=== PATIENT | female | born 1940 | race Caucasian/White ===

== ENCOUNTER 2016-05-16 10:53 | Emergency (ER) | payer OTHER ==
[~2016-05-16] VITALS: Ht 167.6 cm; Wt 60.0 kg
[2016-05-16 10:57] VITALS: BP 162/76; PULSE 71; RESP 20; TEMP 97.7; O2SAT 100
[2016-05-16] MEDS ORDERED: SIMV40TA PO (11:28)
[2016-05-16] MEDS ORDERED: SODIUM CHLOR 0.9% 1000 ML INJ 1,000 ML IV ONE (11:45)
[2016-05-16] MEDS ORDERED: LORazepam 2 MG/ML VIAL IV PUSH ONE (11:45)
[2016-05-16] MEDS ORDERED: MECLIZINE HCL 25 MG TAB PO ONE (11:45)
[2016-05-16] MEDS ORDERED: SODIUM CHLORIDE 0.9% FLUSH 5 ML FLUSH IVF PRN (11:45)
[2016-05-16 11:50] VITALS: O2SAT 97
[2016-05-16 11:52] LABS: AUTOMATED NEUTROPHIL # 3.8 TH/MM3 (1.8-7.7); BASOPHIL # 0.1 TH/MM3 (0-0.2); BASOPHIL % 1.2 % (0.0-2.0); EOSINOPHIL % 0.8 % (0.0-4.0); HEMATOCRIT 37.2 % (35.0-46.0); HEMO FLAGS DIFF FINAL; LYMPHOCYTE # 1.3 TH/MM3 (1.0-4.8); MEAN CELL VOLUME 84.6 FL (80.0-100.0); MEAN CORPUSCULAR HEMOGLOBIN 27.3 PG (27.0-34.0); MEAN CORPUSCULAR HGB CONC 32.3 % (32.0-36.0); MONO % 6.6 % (0.0-8.0); NEUT % 67.4 % (16.0-70.0); PLATELET COUNT 279 TH/MM3 (150-450); RED BLOOD COUNT 4.39 MIL/MM3 (4.00-5.30); RED CELL DISTRIBUTION WIDTH 12.4 % (11.6-17.2); WHITE BLOOD COUNT 5.6 TH/MM3 (4.0-11.0)
[2016-05-16 12:04] LABS: CHLORIDE 106 MEQ/L (98-107); POTASSIUM 3.7 MEQ/L (3.5-5.1); SODIUM (NA) 141 MEQ/L (136-145)
[2016-05-16 12:07] LABS: ANION GAP 13 MEQ/L (5-15); BICARBONATE 22.2 MEQ/L (21.0-32.0); BLOOD UREA NITROGEN 12 MG/DL (7-18)
--- NOTE | 2016-05-16 12:08 | PD ---
HPI Chief Complaint: Dizziness Time Seen by Provider: 11:32 Travel History International Travel<30 days: No Contact w/Intl Traveler<30days: No Traveled to known affect area: No History of Present Illness HPI Patient is a 76-year-old female with history of vertigo, presents to emergency room with complaints of acute onset dizziness. Patient reports that around 9 AM this morning, began to feel the room spinning. Reports that she began to feel nauseous and dizzy and she did vomit up her breakfast. Patient reports that this spinning sensation has since improved, reports that she just feels "dizzy." Denies any trauma to the head or neck. Reports that the last time she felt like this, has been years. Reports that overall, this is the "worst dizzyness" she has felt ever. Reports that Phenergan and antivert usually help her symptoms, reports that since she hasn't had dizziness for the past few years and she has since run out of her medications. Denies trauma or fall. Denies chest pain/sob. Denies abdominal pain, denies n/v. No fever/chills. PFSH Past Medical History High Cholesterol: Yes Tetanus Vaccination: > 5 Years Influenza Vaccination: Yes ?: Not Past Surgical History Appendectomy: Yes Hysterectomy: Yes Family History Family History: Negative Social History Alcohol Use: No Tobacco Use: No Substance Use: No Allergies-Medications (Allergen,Severity, Reaction): Coded Allergies: Penicillin (Verified Allergy, Severe, HIVES, 05/16/16) Reported Meds & Prescriptions Reported Meds & Active Scripts Active Zofran Odt (Ondansetron Odt) 4 Mg Tab 4 Mg SL Q6HR PRN Meclizine (Meclizine HCl) 25 Mg Chew 25 Mg CHEW TID PRN Reported Simvastatin 40 Mg Tab 40 Mg PO HS Review of Systems General / Constitutional: No: Fever, Chills Eyes: No: Visual changes HENT: No: Headaches Cardiovascular: No: Chest Pain or Discomfort Respiratory: No: Shortness of Breath Gastrointestinal: No: Abdominal Pain Genitourinary: No: Dysuria Musculoskeletal: No: Pain Skin: No Rash Neurologic: Positive: Dizziness, Ataxia, No: Weakness, Syncope, Focal Abnormalities, Coordination Problem, Headache, Paresthesia, Incontinence, Seizures Psychiatric: No: Depression Endocrine: No: Polydipsia Hematologic/Lymphatic: No: Easy Bruising Physical Exam Narrative GENERAL: mild distress SKIN: Warm and dry. HEAD: Atraumatic. Normocephalic. EYES: Pupils equal and round. No scleral icterus. No injection or drainage. ENT: No nasal bleeding or discharge. Mucous membranes pink and moist. NECK: Trachea midline. No JVD. CARDIOVASCULAR: Regular rate and rhythm. No murmur appreciated. RESPIRATORY: No accessory muscle use. Clear to auscultation. Breath sounds equal bilaterally. GASTROINTESTINAL: Abdomen soft, non-tender, nondistended. Hepatic and splenic margins not palpable. MUSCULOSKELETAL: No obvious deformities. No clubbing. No cyanosis. No edema. NEUROLOGICAL: Awake and alert. No obvious cranial nerve deficits. Motor grossly within normal limits. Normal speech. pt with horizontal nystagmus on exam, cranial nerves II-12 grossly intact with no neurological deficits PSYCHIATRIC: Appropriate mood and affect; insight and judgment normal. Data Data Last Documented VS Vital Signs Date Time Temp Pulse Resp B/P Pulse Ox O2 Delivery O2 Flow Rate FiO2 05/16/16 13:35 61 14 111/47 97 Room Air 05/16/16 10:57 97.7 Orders Electrocardiogram (05/16/16 11:41) Prothrombin Time / Inr (Pt) (05/16/16 11:41) Act Partial Throm Time (Ptt) (05/16/16 11:41) Complete Blood Count With Diff (05/16/16 11:41) Comprehensive Metabolic Panel (05/16/16 11:41) Urinalysis - C+S If Indicated (05/16/16 11:41) Ct Brain W/O Iv Contrast(Rout) (05/16/16 11:41) Chest, Single Ap (05/16/16 11:41) Ecg Monitoring (05/16/16 11:41) Iv Access Insert/Monitor (05/16/16 11:41) Oximetry (05/16/16 11:41) Sodium Chloride 0.9% Flush (Ns Flush) (05/16/16 11:45) Meclizine (Antivert) (05/16/16 11:45) Lorazepam Inj (Ativan Inj) (05/16/16 11:45) Sodium Chlor 0.9% 1000 Ml Inj (Ns 1000 M (05/16/16 11:45) Aspirin (Aspirin) (05/16/16 14:00) Mri Brain W/O Contrast (05/16/16 14:14) Mra Brain W/O Contrast (Cow) (05/16/16 14:21) Mra Carotids W Contrast (05/16/16 14:21) Labs Laboratory Tests Test 05/16/16 11:40 White Blood Count 5.6 TH/MM3 Red Blood Count 4.39 MIL/MM3 Hemoglobin 12.0 GM/DL Hematocrit 37.2 % Mean Corpuscular Volume 84.6 FL Mean Corpuscular Hemoglobin 27.3 PG Mean Corpuscular Hemoglobin 32.3 % Concent Red Cell Distribution Width 12.4 % Platelet Count 279 TH/MM3 Mean Platelet Volume 7.2 FL Neutrophils (%) (Auto) 67.4 % Lymphocytes (%) (Auto) 24.0 % Monocytes (%) (Auto) 6.6 % Eosinophils (%) (Auto) 0.8 % Basophils (%) (Auto) 1.2 % Neutrophils # (Auto) 3.8 TH/MM3 Lymphocytes # (Auto) 1.3 TH/MM3 Monocytes # (Auto) 0.4 TH/MM3 Eosinophils # (Auto) 0.0 TH/MM3 Basophils # (Auto) 0.1 TH/MM3 CBC Comment DIFF FINAL Differential Comment Prothrombin Time 10.7 SEC Prothromb Time International 1.0 RATIO Ratio Activated Partial 24.3 SEC Thromboplast Time Sodium Level 141 MEQ/L Potassium Level 3.7 MEQ/L Chloride Level 106 MEQ/L Carbon Dioxide Level 22.2 MEQ/L Anion Gap 13 MEQ/L Blood Urea Nitrogen 12 MG/DL Creatinine 0.81 MG/DL Estimat Glomerular Filtration 69 ML/MIN Rate Random Glucose 137 MG/DL Calcium Level 8.7 MG/DL Total Bilirubin 0.7 MG/DL Aspartate Amino Transf 16 U/L (AST/SGOT) Alanine Aminotransferase 20 U/L (ALT/SGPT) Alkaline Phosphatase 65 U/L Total Protein 6.7 GM/DL Albumin 3.6 GM/DL [facility] Medical Decision Making Medical Screen Exam Complete: Yes Emergency Medical Condition: Yes Interpretation(s) EKG at 1146: Sinus bradycardia at 57 bpm, QT/QTc 458/453 Vital Signs Date Time Temp Pulse Resp B/P Pulse Ox O2 Delivery O2 Flow Rate FiO2 05/16/16 11:50 97 Room Air 05/16/16 10:57 97.7 71 20 162/76 100 Differential Diagnosis Vertigo, intracranial hemorrhage, CVA, electrolyte abnormality, arrhythmia, vertebral basilar insufficiency Narrative Course Patient is a 76-year-old female who presents to emergency room with complaints of dizziness. She reports history of vertigo in the past, reports that this morning around 9 AM, she felt dizzy as if the world was spinning, reports that she felt nauseous and did vomit up her breakfast. Reports history of vertigo in the past, reports her symptoms usually resolve after taking Antivert and Phenergan. Patient did not have his medications at home, presents to emergency room for evaluation of her treatment. Patient with benign physical exam, cranial nerves to 12 grossly intact with no neurological deficits. Plan to obtain CAT scan of the brain as well as CBC, BMP, EKG for further evaluation symptoms. Will treat patient's vertiginous symptoms with Antivert and Ativan Pt re-evaluated, pt reports that she is feeling a little better, will continue to monitor patient cbc: wnl bmp: bun/cr: 12/0.81, gfr: 69 ct head: normal examination chest xray: no active disease Patient re-evaluated, I ambulated patient to the bathroom, pt reports that she still feels very dizzy. Discussed with her that she will need to be admitted because i cannot rule out VBI, pt reports that she feels "unsteady" on her feet with ambulation. Concern for vbi as pt does feel nauseas with her symptoms and feels ataxia with ambulation. Pt agreeable to admission Case reviewed with Dr Mas, does not feel that patient requires admission for work up for dizzyness. Feels that studies can be performed in ER and then pt can be followed up as outpt. If patient requires admission, then request that I speak to Neurologist first to get their input Case reviewed with Neurologist, Dr Munoz, request that I order MRI and MRA of the head and neck to evaluate nightmute of alfaro given her age and symptoms. If these studies are negative, then patient can be safely discharged to home with diagnosis of vertigo and can follow up as outpt This was reviewed with pt - pt agreeable to MRI's. MRI's ordered for patient Pt signed out to care of Dr. Suarez at shift change Diagnosis Primary Impression: Dizziness Patient Instructions: General Instructions Med/Other Pt SpecificInfo: Prescription(s) given Scripts Ondansetron Odt (Zofran Odt)4 Mg Tab4 Mg SL Q6HR PRN (Nausea/Vomiting) #30 TAB Ref 0 Prov:Jazmyne Yoon DO 05/16/16 Meclizine 25 Mg Chew25 Mg CHEW TID PRN (DIZZINESS) #30 TAB Ref 0 Prov:Jazmyne Yoon DO 05/16/16 Disposition: 01 DISCHARGE HOME Condition: Stable Jazmyne Yoon DO May 16, 2016 12:08
[2016-05-16 12:09] LABS: APTT (PATIENT) 24.3 SEC (24.3-30.1); PROTHROMBIN TIME - PATIENT 10.7 SEC (9.8-11.6)
[2016-05-16 12:10] LABS: ALT (GPT) 20 U/L (10-53); AST (GOT) 16 U/L (15-37); GLOMERULAR FILTRATION RATE 69 ML/MIN (>89)
[2016-05-16 12:12] LABS: TOTAL BILIRUBIN ADULT 0.7 MG/DL (0.2-1.0)
[2016-05-16 12:13] LABS: ALKALINE PHOSPHATASE 65 U/L (45-117)
[2016-05-16 12:35] VITALS: BP 110/59; PULSE 64; RESP 14; O2SAT 98
--- NOTE | 2016-05-16 12:44 | RADHPO ---
EXAM DATE/TIME: 05/16/2016 12:21 [facility] COMPARISON: No previous studies available for comparison. INDICATIONS : Dizziness. RADIATION DOSE: 56.26 CTDIvol (mGy) MEDICAL HISTORY : Hypercholesterolemia. SURGICAL HISTORY : Appendectomy. Hysterectomy. ENCOUNTER: Initial ACUITY: 1 day PAIN SCALE: 0/10 LOCATION: cranial TECHNIQUE: Multiple contiguous axial images were obtained of the head. Using automated exposure control and adj ustment of the mA and/or kV according to patient size, radiation dose was kept as low as reasonably a chievable to obtain optimal diagnostic quality images. FINDINGS: CEREBRUM: The ventricles are normal for age. No evidence of midline shift, mass lesion, hemorrhage or acute in farction. No extra-axial fluid collections are seen. POSTERIOR FOSSA: The cerebellum and brainstem are intact. The 4th ventricle is midline. The cerebellopontine angle i s unremarkable. EXTRACRANIAL: The visualized portion of the orbits is intact. SKULL: The calvaria is intact. No evidence of skull fracture. CONCLUSION: Normal examination. Virgilio Curran MD on May 16, 2016 at 12:40 Board Certified Radiologist. This report was verified electronically.
--- NOTE | 2016-05-16 13:02 | RADHPO ---
EXAM DATE/TIME: 05/16/2016 12:12 [facility] COMPARISON: No previous studies available for comparison. INDICATIONS : Dizziness. MEDICAL HISTORY : vertigo SURGICAL HISTORY : None. ENCOUNTER: Initial ACUITY: 1 day PAIN SCORE: 0/10 LOCATION: Bilateral chest FINDINGS: A single view of the chest demonstrates the lungs to be symmetrically aerated without evidence of mas s, infiltrate or effusion. The cardiomediastinal contours are unremarkable. Osseous structures are intact. CONCLUSION: 1. No active disease. Virgilio Curran MD on May 16, 2016 at 13:00 Board Certified Radiologist. This report was verified electronically.
[2016-05-16 13:35] VITALS: BP 111/47; PULSE 61; RESP 14; O2SAT 97
[2016-05-16] MEDS ORDERED: ZOFR4TAB3 SL (13:54)
[2016-05-16] MEDS ORDERED: MECL25CH CHEW (13:54)
[2016-05-16] MEDS ORDERED: ASPIRIN 325 MG TAB PO ONE (14:00)
[2016-05-16 16:00] VITALS: BP 124/68; PULSE 81; RESP 14; O2SAT 98
[2016-05-16 16:05] LABS: BLOOD, URINE NEG (NEG); GLUCOSE,URINE NEG (NEG); KETONE, URINE TRACE mg/dL (NEG); NITRITE,URINE NEG (NEG)
[2016-05-16 16:07] LABS: METHOD OF COLLECTION CATH; URINE COLOR YELLOW (YELLW/STRAW)
[2016-05-16 16:09] LABS: COMMENT (UR) CULT NOT INDICATED; CULTURE IF INDICATED CULT NOT INDICATED; SQUAMOUS EPITHELIAL CELL URINE 0-5 /hpf (0-5); WBC, URINE 0-2 /hpf (0-5)
--- NOTE | 2016-05-16 16:10 | RADHPO ---
EXAM DATE/TIME: 05/16/2016 15:28 [facility] COMPARISON: No previous studies available for comparison. INDICATIONS : Dizziness. CVA. MEDICAL HISTORY : Hypercholesterolemia. SURGICAL HISTORY : Hysterectomy. Appendectomy. ENCOUNTER: Subsequent ACUITY: 1 day PAIN SCORE: 2/10 LOCATION: head. TECHNIQUE: Multiplanar, multisequence MRI of the brain was performed without contrast. FINDINGS: CEREBRUM: The ventricles are normal for age. No evidence of midline shift, mass lesion, hemorrhage or acute in farction. No extraaxial fluid collections are seen. The pituitary gland and suprasellar cistern are normal in configuration. WHITE MATTER: Mild signal abnormalities are seen in the white matter. POSTERIOR FOSSA: The cerebellum and brainstem are intact. The 4th ventricle is midline. The cerebellopontine angle is unremarkable. The cerebellar tonsils are normal in position. DIFFUSION IMAGING: No focal areas of restricted diffusion are seen. No evidence of acute infarction. EXTRACRANIAL: The visualized portions of the orbits and paranasal sinuses are unremarkable. CONCLUSION: 1. Mild white matter ischemic changes. No recent infarct identified. No mass effect or midline shift. No hydrocephalus. Virgilio Curran MD on May 16, 2016 at 16:05 Board Certified Radiologist. This report was verified electronically.
--- NOTE | 2016-05-16 16:12 | RADHPO ---
EXAM DATE/TIME: 05/16/2016 15:28 [facility] COMPARISON: No previous studies available for comparison. INDICATIONS : Dizziness. CVA. MEDICAL HISTORY : Hypercholesterolemia. SURGICAL HISTORY : Hysterectomy. Appendectomy. ENCOUNTER: Subsequent ACUITY: 1 day PAIN SCORE: 2/10 LOCATION: head. Please note a normal MRA of the brain does not entirely exclude the possibility of a small aneurysm, nor the possibility of distal intracranial vessel disease. TECHNIQUE: 3D time of flight MRA was performed. Source images, multiplanar STS MIP, and 3D volume MIP reconstru ctions were reviewed. FINDINGS: There is excellent visualization of the major intracranial arteries out to the second-order branch ve ssels. There is no evidence for aneurysm, vessel truncation or stenosis, and no evidence for vascula r malformation. CONCLUSION: Normal examination for a patient of this age. Virgilio Curran MD on May 16, 2016 at 16:09 Board Certified Radiologist. This report was verified electronically.
[2016-05-16] MEDS ORDERED: GADODIAMIDE PF 287 MG/ML 20 ML VIAL (for RAD MRI) IV ONE (16:23)
--- NOTE | 2016-05-16 16:39 | RADHPO ---
EXAM DATE/TIME: 05/16/2016 15:28 [facility] COMPARISON: No previous studies available for comparison. INDICATIONS : Stenosis. CONTRAST: 20 cc Omniscan (gadodiamide) IV MEDICAL HISTORY : Hypercholesterolemia. SURGICAL HISTORY : Hysterectomy. Appendectomy. ENCOUNTER: Subsequent ACUITY: 1 day PAIN SCORE: 0/10 LOCATION: neck. Percent stenosis is calculated using the diameter of the stenotic region over the diameter of the nor mal distal internal carotid artery. TECHNIQUE: Bolus infused MRA of the extracranial circulation was performed using a neurovascular coil. Post pro cessing was performed including rotationg subvolume maximum intensity projections of each carotid art ashleigh, rotating full volume maximum intensity projections of both carotid arteries, sagittal and weathers l sliding thin slab reformations of each carotid artery, and left oblique sliding thin slab reformati on through the aortic arch to include the origin of the arch branch vessels. FINDINGS: AORTIC ARCH: There is a three vessel origin of the great vessels from the aorta. No evidence of ostial narrowing. RIGHT CAROTID: The common carotid artery is intact. The carotid bulb has a normal configuration without ulceration or narrowing. The internal carotid artery lumen is smooth without stenosis. The external carotid ar jamila is intact. LEFT CAROTID: The common carotid artery is intact. The carotid bulb has a normal configuration without ulceration or narrowing. The exam demonstrates a beaded appearance of the proximal internal carotid suggesting mild fibromuscular dysplasia. The external carotid artery is intact. VERTEBRALS: The vertebral arteries have a symmetric diameter. No stenotic lesions are seen. CONCLUSION: 1. Left carotid: 2. There is a beaded appearance of the proximal left internal carotid consistent with mild fibromuscu lar dysplasia. 3. 4. Right carotid: 5. The right internal carotid circulation is widely patent. 6. Both vertebral arteries are widely patent. Emanuel Villela MD on May 16, 2016 at 16:34 Board Certified Radiologist. This report was verified electronically.
[2016-05-16 17:20] VITALS: BP 114/64; PULSE 65; RESP 14; O2SAT 98
--- NOTE | 2016-05-16 17:22 | PD ---
Data Data Last Documented VS Vital Signs Date Time Temp Pulse Resp B/P Pulse Ox O2 Delivery O2 Flow Rate FiO2 05/16/16 17:20 65 14 114/64 98 Room Air 05/16/16 10:57 97.7 Orders Electrocardiogram (05/16/16 11:41) Prothrombin Time / Inr (Pt) (05/16/16 11:41) Act Partial Throm Time (Ptt) (05/16/16 11:41) Complete Blood Count With Diff (05/16/16 11:41) Comprehensive Metabolic Panel (05/16/16 11:41) Urinalysis - C+S If Indicated (05/16/16 11:41) Ct Brain W/O Iv Contrast(Rout) (05/16/16 11:41) Chest, Single Ap (05/16/16 11:41) Ecg Monitoring (05/16/16 11:41) Iv Access Insert/Monitor (05/16/16 11:41) Oximetry (05/16/16 11:41) Sodium Chloride 0.9% Flush (Ns Flush) (05/16/16 11:45) Meclizine (Antivert) (05/16/16 11:45) Lorazepam Inj (Ativan Inj) (05/16/16 11:45) Sodium Chlor 0.9% 1000 Ml Inj (Ns 1000 M (05/16/16 11:45) Aspirin (Aspirin) (05/16/16 14:00) Mri Brain W/O Contrast (05/16/16 14:14) Mra Brain W/O Contrast (Cow) (05/16/16 14:21) Mra Carotids W Contrast (05/16/16 14:21) Gadodiamide Pf Inj (Omniscan Pf Inj) (05/16/16 16:23) Labs Laboratory Tests Test 05/16/16 05/16/16 11:40 16:00 White Blood Count 5.6 TH/MM3 Red Blood Count 4.39 MIL/MM3 Hemoglobin 12.0 GM/DL Hematocrit 37.2 % Mean Corpuscular Volume 84.6 FL Mean Corpuscular Hemoglobin 27.3 PG Mean Corpuscular Hemoglobin 32.3 % Concent Red Cell Distribution Width 12.4 % Platelet Count 279 TH/MM3 Mean Platelet Volume 7.2 FL Neutrophils (%) (Auto) 67.4 % Lymphocytes (%) (Auto) 24.0 % Monocytes (%) (Auto) 6.6 % Eosinophils (%) (Auto) 0.8 % Basophils (%) (Auto) 1.2 % Neutrophils # (Auto) 3.8 TH/MM3 Lymphocytes # (Auto) 1.3 TH/MM3 Monocytes # (Auto) 0.4 TH/MM3 Eosinophils # (Auto) 0.0 TH/MM3 Basophils # (Auto) 0.1 TH/MM3 CBC Comment DIFF FINAL Differential Comment Prothrombin Time 10.7 SEC Prothromb Time International 1.0 RATIO Ratio Activated Partial 24.3 SEC Thromboplast Time Sodium Level 141 MEQ/L Potassium Level 3.7 MEQ/L Chloride Level 106 MEQ/L Carbon Dioxide Level 22.2 MEQ/L Anion Gap 13 MEQ/L Blood Urea Nitrogen 12 MG/DL Creatinine 0.81 MG/DL Estimat Glomerular Filtration 69 ML/MIN Rate Random Glucose 137 MG/DL Calcium Level 8.7 MG/DL Total Bilirubin 0.7 MG/DL Aspartate Amino Transf 16 U/L (AST/SGOT) Alanine Aminotransferase 20 U/L (ALT/SGPT) Alkaline Phosphatase 65 U/L Total Protein 6.7 GM/DL Albumin 3.6 GM/DL Urine Collection Type CATH Urine Color YELLOW Urine Turbidity CLEAR Urine pH 7.0 Urine Specific Leonard 1.007 Urine Protein NEG mg/dL Urine Glucose (UA) NEG mg/dL Urine Ketones TRACE mg/dL Urine Occult Blood NEG Urine Nitrite NEG Urine Bilirubin NEG Urine Leukocyte Esterase TRACE Urine WBC 0-2 /hpf Urine Squamous Epithelial 0-5 /hpf Cells Microscopic Urinalysis Comment CULT NOT INDICATED MDM Supervised Visit with VONDA: No Narrative Course Patient care assumed from Dr. Yoon at 1600, this is a 76-year-old female presented to emergency department with vertiginous type symptoms. Patient states that she has a history of vertigo and has been out of her medicines for some time but this was more intense. Denies history of headache. Initially Dr. Yoon considered admission to the hospital for TIA workup versus basilar stroke workup. After discussion with the hospitalist and a neurologist decision was made for MRI here in the emergency department. MRI has been obtained as well as MRA and essentially negative. Patient does have some beadlike structure in her left carotid artery and this was discussed with her need for follow-up the primary care physician over there was no clot observed. After medication from Dr. Yoon the patient is feeling much better, she displayed normal [id number] test for me as well as no pronator drift, she is ambulatory in the emergency department with him even a narrow based gait. She does feel somewhat drowsy from the Ativan that she was given. At this time and discussed with her the findings and she is eager to go home and follow up with her primary care physician. I discussed with her return to ED criteria Diagnosis Primary Impression: Dizziness Patient Instructions: General Instructions Scripts Ondansetron Odt (Zofran Odt)4 Mg Tab4 Mg SL Q6HR PRN (Nausea/Vomiting) #30 TAB Ref 0 Prov:Jazmyne Yoon DO 05/16/16 Meclizine 25 Mg Chew25 Mg CHEW TID PRN (DIZZINESS) #30 TAB Ref 0 Prov:Jazmyne Yoon DO 05/16/16 Disposition: 01 DISCHARGE HOME Condition: Stable Wilman Suarez MD May 16, 2016 17:22
--- NOTE | 2016-05-17 12:03 | EKG ---
Date Performed: 05/16/2016 Time Performed: 11:46:44 PTAGE: 76 years EKG: Sinus bradycardia with sinus arrhythmia Normal ECG except for rate NO PREVIOUS TRACING DOCTOR: Addi Beckwith Interpretating Date/Time 05/17/2016 12:02:25
[2016-07-10] MEDS ORDERED: GABA100C4 PO (15:50)
[2016-07-10] MEDS ORDERED: HYDR-3516 PO (15:50)
[2016-07-12] MEDS ORDERED: GABA100C4 PO (07:10)
[2016-08-03] MEDS ORDERED: GABA100C4 PO (16:44)
[2016-08-07] MEDS ORDERED: GABA100C4 PO (15:53)
[2016-08-08] MEDS ORDERED: GABA100C4 PO (11:56)
[2016-08-08] MEDS ORDERED: GABA300C5 PO (12:01)
== END 2016-05-16 17:35 | disposition home or self-care (01) ==
LOC: PHED 10:53
DX: R42 Dizziness and giddiness (principal); R11.2 Nausea with vomiting, unspecified; R00.1 Bradycardia, unspecified; E78.00 Pure hypercholesterolemia, unspecified
CPT/HCPCS: 70450; 70544; 70548; 70551; 71010; 80053; 81001; 85025; 85610; 85730; 93005; 96361; 96374; 99284; A9579; J2060; J7030

== ENCOUNTER 2016-06-23 16:10 | Observation (INO) | payer OTHER ==
[2016-06-23] VITALS (7 sets, daily range): BP systolic 105–139; BP diastolic 54–70; PULSE 57–82; RESP 16–18; TEMP 96.5–97.7; O2SAT 96–100
[~2016-06-23] VITALS: Ht 167.6 cm; Wt 61.8 kg
[~2016-06-23 16:10] MED LIST: MECL25CH CHEW; SIMV40TA PO; ZOFR4TAB3 SL
--- NOTE | 2016-06-23 18:39 | PD ---
HPI Chief Complaint: Pain: Acute or Chronic Time Seen by Provider: 18:22 Travel History International Travel<30 days: No Contact w/Intl Traveler<30days: No Traveled to known affect area: No History of Present Illness HPI This 76-year-old female has been having pain in the right groin and back area. His been having pain for about 3 weeks. She went to an urgent care center and had x-rays done he was told she had an old fracture around her tailbone. She was given steroids which seemed to help a little bit. She has a lot of pain when she tries to walk. She says the pain is been getting progressively worse. She's been taking ibuprofen for the pain without much response. The pain occasionally goes down her legs area and she has no history of hypertension or diabetes. There is no history of trauma. She has had an appendectomy. She has had a hysterectomy. The area she was seen here in May for vertigo. The last 2 or 3 days he has been unable to walk. It is extremely painful for her to bear weight pain that she has any area of the right iliac crest PFSH Past Medical History Hx Anticoagulant Therapy: No Cardiovascular Problems: Yes (CHOL) High Cholesterol: Yes Diabetes: No Influenza Vaccination: Yes Past Surgical History Appendectomy: Yes Hysterectomy: Yes Social History Alcohol Use: No Tobacco Use: No Substance Use: No Allergies-Medications (Allergen,Severity, Reaction): Coded Allergies: Penicillin (Verified Allergy, Severe, HIVES, 06/23/16) Reported Meds & Prescriptions Reported Meds & Active Scripts Active Meclizine (Meclizine HCl) 25 Mg Chew 25 Mg CHEW TID PRN Reported Simvastatin 40 Mg Tab 40 Mg PO HS Review of Systems General / Constitutional: No: Fever, Chills Eyes: No: Diploplia HENT: No: Headaches Cardiovascular: No: Chest Pain or Discomfort, Palpitations Respiratory: No: Cough, Shortness of Breath Gastrointestinal: No: Vomiting, Diarrhea Genitourinary: No: Frequency Musculoskeletal: Positive: Pain, No: Myalgias Skin: No Rash, No Itching Neurologic: No: Weakness Hematologic/Lymphatic: No: Easy Bruising Physical Exam Narrative GENERAL: Well-developed female SKIN: Warm and dry. HEAD: Atraumatic. Normocephalic. EYES: Pupils equal and round. No scleral icterus. No injection or drainage. ENT: No nasal bleeding or discharge. Mucous membranes pink and moist. NECK: Trachea midline. No JVD. CARDIOVASCULAR: Regular rate and rhythm. No murmur appreciated. RESPIRATORY: No accessory muscle use. Clear to auscultation. Breath sounds equal bilaterally. GASTROINTESTINAL: Abdomen soft, there is right lower quadrant tenderness without guarding or rigidity nondistended. Hepatic and splenic margins not palpable. MUSCULOSKELETAL: No obvious deformities. No clubbing. No cyanosis. No edema. There is some tenderness in the area of the right pubic bone and the right iliac crest. I'm able to flex and rotate the hip without eliciting any pain. Patient has severe pain in the right iliac crest when she tries to bear weight NEUROLOGICAL: Awake and alert. No obvious cranial nerve deficits. Motor grossly within normal limits. Normal speech. PSYCHIATRIC: Appropriate mood and affect; insight and judgment normal. Data Data Last Documented VS Vital Signs Date Time Temp Pulse Resp B/P Pulse Ox O2 Delivery O2 Flow Rate FiO2 06/23/16 20:20 58 16 139/70 97 Room Air 06/23/16 16:16 97.7 Orders Complete Blood Count With Diff (06/23/16 18:33) Comprehensive Metabolic Panel (06/23/16 18:33) Urinalysis - C+S If Indicated (06/23/16 18:33) Ct Abd/Pel W Iv Contrast(Rout) (06/23/16 18:33) Ondansetron Inj (Zofran Inj) (06/23/16 18:45) Morphine Inj (Morphine Inj) (06/23/16 18:45) Admit Order (Ed Use Only) (06/23/16 21:21) Mri Joint Hip W&W/O Contrast (06/23/16 ) Labs Laboratory Tests Test 06/23/16 06/23/16 18:43 19:55 White Blood Count 5.5 TH/MM3 Red Blood Count 4.41 MIL/MM3 Hemoglobin 12.3 GM/DL Hematocrit 37.6 % Mean Corpuscular Volume 85.2 FL Mean Corpuscular Hemoglobin 27.8 PG Mean Corpuscular Hemoglobin 32.6 % Concent Red Cell Distribution Width 12.4 % Platelet Count 257 TH/MM3 Mean Platelet Volume 7.0 FL Neutrophils (%) (Auto) 54.5 % Lymphocytes (%) (Auto) 31.4 % Monocytes (%) (Auto) 9.8 % Eosinophils (%) (Auto) 3.3 % Basophils (%) (Auto) 1.0 % Neutrophils # (Auto) 3.0 TH/MM3 Lymphocytes # (Auto) 1.7 TH/MM3 Monocytes # (Auto) 0.5 TH/MM3 Eosinophils # (Auto) 0.2 TH/MM3 Basophils # (Auto) 0.1 TH/MM3 CBC Comment DIFF FINAL Differential Comment Sodium Level 144 MEQ/L Potassium Level 4.0 MEQ/L Chloride Level 108 MEQ/L Carbon Dioxide Level 27.2 MEQ/L Anion Gap 9 MEQ/L Blood Urea Nitrogen 19 MG/DL Creatinine 0.92 MG/DL Estimat Glomerular Filtration 59 ML/MIN Rate Random Glucose 104 MG/DL Calcium Level 8.3 MG/DL Total Bilirubin 0.3 MG/DL Aspartate Amino Transf 13 U/L (AST/SGOT) Alanine Aminotransferase 15 U/L (ALT/SGPT) Alkaline Phosphatase 61 U/L Total Protein 6.5 GM/DL Albumin 3.4 GM/DL Urine Collection Type VOIDED Urine Color STRAW Urine Turbidity CLEAR Urine pH 6.5 Urine Specific [place] 1.035 Urine Protein NEG mg/dL Urine Glucose (UA) NEG mg/dL Urine Ketones TRACE mg/dL Urine Occult Blood NEG Urine Nitrite NEG Urine Bilirubin NEG Urine Leukocyte Esterase NEG Urine WBC 0-2 /hpf Urine Squamous Epithelial 0-2 /hpf Cells Urine Mucus RARE /lpf Microscopic Urinalysis Comment CULT NOT INDICATED MDM Medical Decision Making Medical Screen Exam Complete: Yes Emergency Medical Condition: Yes Medical Record Reviewed: Yes Differential Diagnosis ,Differential includes intra-abdominal process, pelvic bone abnormality Narrative Course CT scan of the abdomen and pelvis has been obtained and does not reveal an etiology for this pain. This pain has been progressive and has gotten to the point she is not able to walk without severe pain. She will be put in observation for further evaluation. Patient has previously been seen in an urgent care center and the pain is intractable.She is unable to ambulate Diagnosis Primary Impression: right pelvic pain Additional Impression: Inability to ambulate due to hip Admitting Information Admitting Physician Requests: Observation Disposition: 01 DISCHARGE HOME Condition: Stable Dimitrios Almaraz MD Jun 23, 2016 18:39
[2016-06-23] MEDS ORDERED: MORPHINE SULFATE 4 MG/ML INJ IV PUSH ONE (18:45)
[2016-06-23] MEDS ORDERED: ONDANSETRON HCL 4 MG/2 ML VIAL IV PUSH ONE (18:45)
[2016-06-23 19:01] LABS: BASOPHIL # 0.1 TH/MM3 (0-0.2); EOSINOPHIL # 0.2 TH/MM3 (0-0.4); EOSINOPHIL % 3.3 % (0.0-4.0); HEMATOCRIT 37.6 % (35.0-46.0); HEMO FLAGS DIFF FINAL; LYMPH % 31.4 % (9.0-44.0); LYMPHOCYTE # 1.7 TH/MM3 (1.0-4.8); MEAN CELL VOLUME 85.2 FL (80.0-100.0); MEAN CORPUSCULAR HEMOGLOBIN 27.8 PG (27.0-34.0); MEAN CORPUSCULAR HGB CONC 32.6 % (32.0-36.0); MONO % 9.8 % (0.0-8.0); NEUT % 54.5 % (16.0-70.0); PLATELET COUNT 257 TH/MM3 (150-450); RED BLOOD COUNT 4.41 MIL/MM3 (4.00-5.30); RED CELL DISTRIBUTION WIDTH 12.4 % (11.6-17.2); WHITE BLOOD COUNT 5.5 TH/MM3 (4.0-11.0)
[2016-06-23 19:10] LABS: CHLORIDE 108 MEQ/L (98-107); SODIUM (NA) 144 MEQ/L (136-145)
[2016-06-23 19:13] LABS: ANION GAP 9 MEQ/L (5-15); BICARBONATE 27.2 MEQ/L (21.0-32.0); BLOOD UREA NITROGEN 19 MG/DL (7-18)
[2016-06-23 19:16] LABS: ALT (GPT) 15 U/L (10-53); AST (GOT) 13 U/L (15-37); GLOMERULAR FILTRATION RATE 59 ML/MIN (>89)
[2016-06-23 19:18] LABS: TOTAL BILIRUBIN ADULT 0.3 MG/DL (0.2-1.0)
[2016-06-23 19:19] LABS: ALKALINE PHOSPHATASE 61 U/L (45-117)
[2016-06-23 20:27] LABS: BLOOD, URINE NEG (NEG); GLUCOSE,URINE NEG (NEG); KETONE, URINE TRACE mg/dL (NEG); NITRITE,URINE NEG (NEG); PH, URINE 6.5 (5.0-8.5)
[2016-06-23 20:38] LABS: METHOD OF COLLECTION VOIDED; URINE COLOR STRAW (YELLW/STRAW)
[2016-06-23 20:39] LABS: WBC, URINE 0-2 /hpf (0-5)
[2016-06-23 20:40] LABS: COMMENT (UR) CULT NOT INDICATED; CULTURE IF INDICATED CULT NOT INDICATED; MUCUS URINE RARE /lpf (OCC); SQUAMOUS EPITHELIAL CELL URINE 0-2 /hpf (0-5)
--- NOTE | 2016-06-23 20:47 | RADHPO ---
EXAM DATE/TIME: 06/23/2016 19:35 [facility] COMPARISON: No previous studies available for comparison. INDICATIONS : Right groin pain radiating to the right back. IV CONTRAST: 93 cc Omnipaque 350 (iohexol) IV ORAL CONTRAST: No oral contrast ingested. RADIATION DOSE: 7.88 CTDIvol (mGy) MEDICAL HISTORY : None SURGICAL HISTORY : Hysterectomy. Appendectomy. ENCOUNTER: Initial ACUITY: 1 day PAIN SCALE: 8/10 LOCATION: Right lower quadrant TECHNIQUE: Volumetric scanning of the abdomen and pelvis was performed. Using automated exposure control and ad justment of the mA and/or kV according to patient size, radiation dose was kept as low as reasonably achievable to obtain optimal diagnostic quality images. FINDINGS: Plan bases clear except for minimal dependent atelectasis. No significant abnormality in the liver, s pleen, adrenals, kidneys or pancreas. No calcified gallstones or biliary ductal dilatation. No free f luid. No bowel obstruction. CONCLUSION: 1. No acute findings in abdomen and pelvic CT. Mild fatty liver. No inguinal hernia identified. Virgilio Curran MD on June 23, 2016 at 20:43 Board Certified Radiologist. This report was verified electronically.
[2016-06-23] MEDS ORDERED: NALOXONE HCL 0.4 MG/ML AMP IV PRN (21:30)
[2016-06-23] MEDS ORDERED: SODIUM CHLORIDE 0.9% FLUSH 5 ML FLUSH FLUSH PRN (21:30)
[2016-06-23] MEDS ORDERED: ONDANSETRON HCL 4 MG/2 ML VIAL IVP PRN (21:30)
[2016-06-23] MEDS ORDERED: BISACODYL 10 MG SUPP PR PRN (21:30)
[2016-06-23] MEDS ORDERED: MORPHINE SULFATE 4 MG/ML INJ IV PUSH PRN (21:30)
[2016-06-23] MEDS ORDERED: ACETAMINOPHEN 325 MG TAB PO PRN (21:30)
[2016-06-23] MEDS: DOCUSATE SODIUM 100 MG CAP PO SCH (22:12)
[2016-06-23] MEDS: HEPARIN SODIUM - SQ 10,000 UNITS/ML VIAL SQ SCH (22:13)
[2016-06-23] MEDS ORDERED: IOHEXOL 350 MG/ML 10 ML VIAL (for RAD DIAG) IV ONE (23:41)
[2016-06-24 04:00] VITALS: BP 119/59; PULSE 62; RESP 20; TEMP 96.6; O2SAT 98
[2016-06-24] MEDS: HEPARIN SODIUM - SQ 10,000 UNITS/ML VIAL SQ SCH ×3 (06:02→21:17)
[2016-06-24 06:53] LABS: AUTOMATED NEUTROPHIL # 3.8 TH/MM3 (1.8-7.7); BASOPHIL % 0.7 % (0.0-2.0); EOSINOPHIL # 0.2 TH/MM3 (0-0.4); EOSINOPHIL % 2.8 % (0.0-4.0); HEMATOCRIT 38.3 % (35.0-46.0); HEMO FLAGS DIFF FINAL; LYMPH % 31.9 % (9.0-44.0); LYMPHOCYTE # 2.1 TH/MM3 (1.0-4.8); MEAN CELL VOLUME 86.2 FL (80.0-100.0); MEAN CORPUSCULAR HEMOGLOBIN 28.2 PG (27.0-34.0); MEAN CORPUSCULAR HGB CONC 32.7 % (32.0-36.0); MONO % 7.7 % (0.0-8.0); NEUT % 56.9 % (16.0-70.0); PLATELET COUNT 234 TH/MM3 (150-450); RED BLOOD COUNT 4.44 MIL/MM3 (4.00-5.30); RED CELL DISTRIBUTION WIDTH 12.8 % (11.6-17.2); WHITE BLOOD COUNT 6.6 TH/MM3 (4.0-11.0)
[2016-06-24 07:22] LABS: POTASSIUM 4.3 MEQ/L (3.5-5.1)
[2016-06-24 07:27] LABS: BICARBONATE 28.4 MEQ/L (21.0-32.0)
[2016-06-24 08:00] VITALS: BP 93/57; PULSE 61; RESP 20; TEMP 96.9; O2SAT 98
[2016-06-24] MEDS: DOCUSATE SODIUM 100 MG CAP PO SCH ×2 (08:13→21:17)
[2016-06-24] MEDS: SODIUM CHLORIDE 0.9% FLUSH 5 ML FLUSH FLUSH SCH ×2 (08:15→21:16)
[2016-06-24] MEDS: MORPHINE SULFATE 4 MG/ML INJ IV PUSH PRN ×2 (11:51→21:17)
[2016-06-24 12:00] VITALS: BP 107/61; PULSE 65; RESP 20; TEMP 98.3; O2SAT 97
[2016-06-24] MEDS ORDERED: MECLIZINE HCL 25 MG TAB PO PRN (12:30)
--- NOTE | 2016-06-24 12:35 | HHI.HP ---
[facility] No Primary Care Physician Admission Diagnosis R PELVIC PAIN, INTRACTABLE, INABILITY TO WALK Diagnoses: Chief Complaint: lumbago Travel History International Travel<30 Days: No Contact w/Intl Traveler <30 Da: No Traveled to Known Affected Are: No History of Present Illness This patient is a 76-year-old female who came to the emergency room with complaints of 3 weeks of right back pain and right leg weakness and inability to ambulate due to the pain. She has noted no trauma or recent injury to the area although 30 years ago she says she had some sort of tell bone fracture which was managed quite conservatively. She has not had any fevers or chills and notes no urinary troubles or dysuria. She did see her primary doctor and had x-rays done and was given steroids which did help a little. However currently she cannot ambulate without severe weakness and severe pain. There is no urinary or stool incontinence. She has no numbness in the leg. Upper extremities are within normal limits. 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 She tried ibuprofen without much relief and finally came to the emergency room for further evaluation. She says she felt better on the steroids but once she discontinued and the pain came back worse. Patient has been recommended for further observation and treatment in the hospital by the ER physician. Review of Systems Constitutional: DENIES: Diaphoretic episodes, Fatigue, Fever, Weight gain, Weight loss, Chills, Dizziness, Change in appetite, Night Sweats Endocrine: DENIES: Abnorml menstrual pattern, Heat/cold intolerance, Polydipsia , Polyuria, Polyphagia Eyes: DENIES: Blurred vision, Diplopia, Eye inflammation, Eye pain, Vision loss , Photosensitivity, Double Vision Ears, nose, mouth, throat: DENIES: Tinnitus, Hearing loss, Vertigo, Nasal discharge, Oral lesions, Throat pain, Hoarseness, Ear Pain, Running Nose, Epistaxis, Sinus Pain, Toothache, Odynophagia Respiratory: DENIES: Apneas, Cough, Snoring, Wheezing, Hemoptysis, Sputum production, Shortness of breath Cardiovascular: DENIES: Chest pain, Palpitations, Syncope, Dyspnea on Exertion , PND, Lower Extremity Edema, Orthopnea, Claudication Gastrointestinal: DENIES: Abdominal pain, Black stools, Bloody stools, Constipation, Diarrhea, Nausea, Vomiting, Difficulty Swallowing, Anorexia Genitourinary: DENIES: Abnormal vaginal bleeding, Dysmenorrhea, Dyspareunia, Sexual dysfunction, Urinary frequency, Urinary incontinence, Urgency, Hematuria , Dysuria, Nocturia, Vaginal discharge Integumentary: DENIES: Abnormal pigmentation, Pruritus, Rash, Nail changes, Breast masses, Breast skin changes, Nipple discharge Hematologic/lymphatic: DENIES: Bruising, Lymphadenopathy Immunologic/allergic: DENIES: Eczema, Urticaria Neurologic: COMPLAINS OF: Abnormal gait (due to weakness), Localized weakness, Poor Balance Psychiatric: DENIES: Anxiety, Confusion, Mood changes, Depression, Hallucinations, Agitation, Suicidal Ideation, Homicidal Ideation, Delusions Past Family Social History Past Medical History hyperlipidemia mild cognitive impairment Past Surgical History chavez eason Reported Medications reviewed in the EMR, recent steroids Allergies: Coded Allergies: Penicillin (Verified Allergy, Severe, HIVES, 06/23/16) Active Ordered Medications reviewed inthe emr Family History dm2 in mom Social History no drugs, tobacco or etoh Physical Exam Vital Signs Vital Signs Date Time Temp Pulse Resp B/P Pulse Ox O2 Delivery O2 Flow Rate FiO2 06/24/16 08:00 96.9 61 20 93/57 98 06/24/16 04:00 96.6 62 20 119/59 98 06/23/16 22:51 96.5 57 18 105/61 100 06/23/16 22:50 63 16 112/58 97 06/23/16 22:45 96.5 57 18 105/61 100 06/23/16 21:45 62 17 118/60 96 Room Air 06/23/16 20:20 58 16 139/70 97 Room Air 06/23/16 19:18 60 16 123/67 98 Room Air 06/23/16 16:16 97.7 82 18 108/54 98 Physical Exam GENERAL: This is a well-nourished, well-developed patient, in no apparent distress. SKIN: No rashes, ecchymoses or lesions. Cool and dry. HEAD: Atraumatic. Normocephalic. No temporal or scalp tenderness. EYES: Pupils equal round and reactive. Extraocular motions intact. No scleral icterus. No injection or drainage. ENT: Nose without bleeding, purulent drainage or septal hematoma. Throat without erythema, tonsillar hypertrophy or exudate. Uvula midline. Airway patent. NECK: Trachea midline. No JVD or lymphadenopathy. Supple, nontender, no meningeal signs. CARDIOVASCULAR: Regular rate and rhythm without murmurs, gallops, or rubs. RESPIRATORY: Clear to auscultation. Breath sounds equal bilaterally. No wheezes , rales, or rhonchi. GASTROINTESTINAL: Abdomen soft, non-tender, nondistended. No hepato-splenomegaly , or palpable masses. No guarding. MUSCULOSKELETAL: right lumbar tenderness, right leg weakness, Extremities without clubbing, cyanosis, or edema. No joint tenderness, effusion, or edema noted. No calf tenderness. Negative Homans sign bilaterally. NEUROLOGICAL: Awake and alert. Cranial nerves II through XII intact. Motor and sensory grossly within normal limits. Five out of 5 muscle strength in all muscle groups. Normal speech. Laboratory Laboratory Tests Test 06/23/16 06/23/16 06/24/16 18:43 19:55 05:57 White Blood Count 5.5 6.6 Red Blood Count 4.41 4.44 Hemoglobin 12.3 12.5 Hematocrit 37.6 38.3 Mean Corpuscular Volume 85.2 86.2 Mean Corpuscular Hemoglobin 27.8 28.2 Mean Corpuscular Hemoglobin 32.6 32.7 Concent Red Cell Distribution Width 12.4 12.8 Platelet Count 257 234 Mean Platelet Volume 7.0 7.6 Neutrophils (%) (Auto) 54.5 56.9 Lymphocytes (%) (Auto) 31.4 31.9 Monocytes (%) (Auto) 9.8 7.7 Eosinophils (%) (Auto) 3.3 2.8 Basophils (%) (Auto) 1.0 0.7 Neutrophils # (Auto) 3.0 3.8 Lymphocytes # (Auto) 1.7 2.1 Monocytes # (Auto) 0.5 0.5 Eosinophils # (Auto) 0.2 0.2 Basophils # (Auto) 0.1 0.0 CBC Comment DIFF FINAL DIFF FINAL Differential Comment Sodium Level 144 144 Potassium Level 4.0 4.3 Chloride Level 108 106 Carbon Dioxide Level 27.2 28.4 Anion Gap 9 10 Blood Urea Nitrogen 19 15 Creatinine 0.92 0.81 Estimat Glomerular Filtration 59 69 Rate Random Glucose 104 103 Calcium Level 8.3 8.5 Total Bilirubin 0.3 Aspartate Amino Transf 13 (AST/SGOT) Alanine Aminotransferase 15 (ALT/SGPT) Alkaline Phosphatase 61 Total Protein 6.5 Albumin 3.4 Urine Collection Type VOIDED Urine Color STRAW Urine Turbidity CLEAR Urine pH 6.5 Urine Specific [place] 1.035 Urine Protein NEG Urine Glucose (UA) NEG Urine Ketones TRACE Urine Occult Blood NEG Urine Nitrite NEG Urine Bilirubin NEG Urine Leukocyte Esterase NEG Urine WBC 0-2 Urine Squamous Epithelial 0-2 Cells Urine Mucus RARE Microscopic Urinalysis Comment CULT NOT INDICATED Result Diagram: 06/24/16 0557 06/24/16 0557 Imaging Last Impressions Abdomen/Pelvis CT 06/23/16 1833 Signed Impressions: Service Date/Time: Thursday, June 23, 2016 19:35 - CONCLUSION: 1. No acute findings in abdomen and pelvic CT. Mild fatty liver. No inguinal hernia identified. Virgilio Curran MD Assessment and Plan Problem List: (1) Inability to ambulate due to hip ICD Code: R26.2 Status: Acute Plan: R/O lumbar disc disease or cva cont with pain meds prn Assessment and Plan plan of care to be determined by hospital course Code Status full code Discussed Condition With patient, family, RN Jaxon,Mariah Teran MD Jun 24, 2016 12:35
[2016-06-24 16:00] VITALS: BP 110/65; PULSE 68; RESP 20; TEMP 98; O2SAT 98
[2016-06-24 20:00] VITALS: BP 109/53; PULSE 76; RESP 16; TEMP 97.3; O2SAT 97
[2016-06-24] MEDS: PRAVASTATIN SOD 80 MG TAB PO SCH (21:17)
[2016-06-25] VITALS: BP 126/57; PULSE 77; RESP 16; TEMP 97.8; O2SAT 99
[2016-06-25 04:00] VITALS: BP 141/73; PULSE 76; RESP 16; TEMP 97.7; O2SAT 98
[2016-06-25] MEDS: HEPARIN SODIUM - SQ 10,000 UNITS/ML VIAL SQ SCH ×3 (05:28→21:51)
[2016-06-25] MEDS: MORPHINE SULFATE 4 MG/ML INJ IV PUSH PRN (05:28)
--- NOTE | 2016-06-25 07:52 | HHI.PR ---
Subjective Remarks Patient seen today in room in follow-up for right lower back pain/lumbago and for right leg weakness. Patient out of bed to chair. No complaints other than pain unable to get MRIs yesterday due to increased pain and anxiety Objective Vitals Vital Signs Date Time Temp Pulse Resp B/P Pulse Ox O2 Delivery O2 Flow Rate FiO2 06/25/16 04:00 97.7 76 16 141/73 98 06/25/16 00:00 97.8 77 16 126/57 99 06/24/16 20:00 97.3 76 16 109/53 97 06/24/16 16:00 98.0 68 20 110/65 98 06/24/16 12:00 98.3 65 20 107/61 97 06/24/16 08:00 96.9 61 20 93/57 98 I/O 06/24/16 06/24/16 06/24/16 06/25/16 06/25/16 06/25/16 07:00 15:00 23:00 07:00 15:00 23:00 Intake Total 800 ml 640 ml 420 ml Balance 800 ml 640 ml 420 ml Intake Oral 800 ml 640 ml 420 ml # Voids 5 3 6 # Bowel Movements 0 0 0 Result Diagram: 06/24/16 0557 06/24/16 0557 Objective Remarks GENERAL: This is a well-nourished, well-developed patient, in no apparent distress. CARDIOVASCULAR: Regular rate and rhythm without murmurs, gallops, or rubs. RESPIRATORY: Clear to auscultation. Breath sounds equal bilaterally. No wheezes , rales, or rhonchi. GASTROINTESTINAL: Abdomen soft, non-tender, nondistended. Normal active bowel sounds MUSCULOSKELETAL: Extremities without clubbing, cyanosis, or edema. NEURO: Mild to moderate cognitive impairment Alert & Oriented x4 to person, and place, right lower extremity weakness A/P Problem List: (1) Inability to ambulate due to hip ICD Code: R26.2 Status: Acute Plan: R/O lumbar disc disease or cva cont with pain meds Naprosyn/Ultram scheduled Rehabilitation efforts (2) HLD (hyperlipidemia) ICD Code: E78.5 Status: Acute Plan: cont statin Mariah Coates MD Jun 25, 2016 07:51
[2016-06-25 08:00] VITALS: BP 107/51; PULSE 88; RESP 20; TEMP 98.3; O2SAT 98
[2016-06-25] MEDS ORDERED: PILL SPLITTER OTHER PRN (08:15)
[2016-06-25] MEDS: DOCUSATE SODIUM 100 MG CAP PO SCH ×2 (08:25→21:50)
[2016-06-25] MEDS: traMADol HCL 50 MG TAB PO SCH ×2 (08:26→21:52)
[2016-06-25] MEDS: SODIUM CHLORIDE 0.9% FLUSH 5 ML FLUSH FLUSH SCH ×2 (08:27→21:57)
--- NOTE | 2016-06-25 09:56 | RADHPO ---
EXAM DATE/TIME: 06/25/2016 09:07 [facility] COMPARISON: CT BRAIN W/O CONTRAST, May 16, 2016, 12:21. INDICATIONS : Right lower back and right leg pain for three weeks. RADIATION DOSE: 63.69 CTDIvol (mGy) MEDICAL HISTORY : Cardiovascular disease. SURGICAL HISTORY : Appendectomy. Hysterectomy. ENCOUNTER: Initial ACUITY: 3 weeks PAIN SCALE: 7/10 LOCATION: Right leg TECHNIQUE: Multiple contiguous axial images were obtained of the head. Using automated exposure control and adj ustment of the mA and/or kV according to patient size, radiation dose was kept as low as reasonably a chievable to obtain optimal diagnostic quality images. FINDINGS: CEREBRUM: The ventricles are normal for age. No evidence of midline shift, mass lesion, hemorrhage or acute in farction. No extra-axial fluid collections are seen. POSTERIOR FOSSA: The cerebellum and brainstem are intact. The 4th ventricle is midline. The cerebellopontine angle i s unremarkable. EXTRACRANIAL: The visualized portion of the orbits is intact. SKULL: The calvaria is intact. No evidence of skull fracture. CONCLUSION: Unremarkable and stable CT brain compared to the prior study. Cesario Nick MD on June 25, 2016 at 9:54 Board Certified Radiologist. This report was verified electronically.
--- NOTE | 2016-06-25 10:01 | RADHPO ---
EXAM DATE/TIME: 06/25/2016 09:13 [facility] COMPARISON: No previous studies available for comparison. INDICATIONS : Right lower back and right leg pain for three weeks. RADIATION DOSE: 22.45 CTDIvol (mGy) MEDICAL HISTORY : Cardiovascular disease. SURGICAL HISTORY : Hysterectomy. Appendectomy. ENCOUNTER: Initial ACUITY: 1 day PAIN SCALE: 7/10 LOCATION: Right lower back TECHNIQUE: Volumetric scanning of the lumbar spine was performed. Multiplanar reconstructions in the sagittal, coronal and oblique axial planes were performed. Using automated exposure control and adjustment of the mA and/or kV according to patient size, radiation dose was kept as low as reasonably achievable t o obtain optimal diagnostic quality images. FINDINGS: VERTEBRAE: There is evidence of compression fracture injuries involving the superior endplates of L1 and L4. The compression fracture along the superior endplate of L4 appears to be subacute. The compression fract ure along L1 is either subacute to chronic. There is mild retrolisthesis of L2 over L3. There are markie ashley bony degenerative changes throughout the lumbar spine. There is disc space narrowing at L2-3. T12-L1: The thecal sac has a normal diameter. No evidence of disc bulge or protrusion. The neural foramina are patent bilaterally. L1-L2: The thecal sac has a normal diameter. No evidence of disc bulge or protrusion. The neural foramina are patent bilaterally. L2-L3: The thecal sac has a normal diameter. No evidence of disc bulge or protrusion. The neural foramina are patent bilaterally. L3-L4: There is moderate diffuse broad-based bulging and right lateral bulging with narrowing of the neural foramina bilaterally, right greater than left. There is bilateral facet arthritis and hypertrophy of ligamentum flavum. This is causing focal moderate spinal canal stenosis. L4-L5: Moderate diffuse broad-based bulging. There is hypertrophy of ligamentum flavum and bilateral facet a rthritis causing moderate spinal canal stenosis. L5-S1: Mild broad-based bulging. The neural foramina are patent bilaterally. Bilateral facet arthritis. CONCLUSION: 1. Compression fracture injuries are seen along the superior endplates of L1 and L4. L4 appears to be subacute. 2. Mild retrolisthesis of L2 over L3. 3. Moderate spinal canal stenosis at L3-4 and L4-5. 4. Primary degenerative changes of the lumbar spine with disc space narrowing at L2-3. 5. Broad-based bulging at multiple levels. Cesario Nick MD on June 25, 2016 at 9:54 Board Certified Radiologist. This report was verified electronically.
[2016-06-25] MEDS: NAPROXEN 250 MG TAB PO SCH ×2 (10:03→21:51)
[2016-06-25 12:00] VITALS: BP 109/53; PULSE 71; RESP 20; TEMP 97.7; O2SAT 97
[2016-06-25 16:00] VITALS: BP 109/56; PULSE 66; RESP 18; TEMP 97.9; O2SAT 98
[2016-06-25 21:10] VITALS: BP 121/55; PULSE 67; RESP 18; TEMP 96.6; O2SAT 97
[2016-06-25] MEDS: PRAVASTATIN SOD 80 MG TAB PO SCH (21:51)
[2016-06-26 04:00] VITALS: BP 108/63; PULSE 70; RESP 18; TEMP 96.6; O2SAT 99
[2016-06-26] MEDS: HEPARIN SODIUM - SQ 10,000 UNITS/ML VIAL SQ SCH ×3 (06:06→21:24)
[2016-06-26 07:21] LABS: PROTHROMBIN TIME - PATIENT 10.8 SEC (9.8-11.6)
[2016-06-26 08:00] VITALS: BP 114/52; PULSE 65; RESP 18; TEMP 97; O2SAT 98
[2016-06-26] MEDS: DOCUSATE SODIUM 100 MG CAP PO SCH ×2 (08:44→21:24)
[2016-06-26] MEDS: SENNOSIDES 8.6 MG TAB PO PRN (08:47)
[2016-06-26] MEDS: NAPROXEN 250 MG TAB PO SCH ×2 (08:49→21:24)
[2016-06-26] MEDS: SODIUM CHLORIDE 0.9% FLUSH 5 ML FLUSH FLUSH SCH ×2 (08:50→21:29)
[2016-06-26] MEDS: traMADol HCL 50 MG TAB PO SCH (08:50)
--- NOTE | 2016-06-26 09:08 | PD.RAD ---
Radiology Note 76 y/o with severe back pain, right hip pain. CT demonstrates compression fractures of L1 and L4. Pt. was not able to tolerate MRI of the lumbar spine due to anxiety. PT has no recent history of trauma and reports a remote history of spinal fractures approximately 30 years ago. PT. seen this am and states she is doing better but still in significant pain. The risk, benefits and potential complications of Kyphoplasty discussed. Pt. will need MRI of the lumbar spine to asses the chronicity of the fractures. Will arrange with sedation. Emanuel Villela MD Jun 26, 2016 09:08
[2016-06-26] MEDS ORDERED: DIAZEPAM 5 MG TAB PO ONE (09:15)
[2016-06-26 11:47] VITALS: BP 111/55; PULSE 65; RESP 18; TEMP 96.5; O2SAT 98
--- NOTE | 2016-06-26 11:53 | PD.RAD ---
Radiology Note 76 y/o with low back and right hip pain. MRI reviewed....The compression fracture at L4 is acute; however, the patient has a large right para central disc protrusion with foraminal disc and spinal stenosis at this level. As such, I would recommend conservative management of the fracture as kyphoplasty would likely exacerbate the spinal stenosis. If the patient's radiculopathy remains severe right L4 nerve root injection could be preformed. Emanuel Villela MD Jun 26, 2016 11:53
--- NOTE | 2016-06-26 11:55 | RADRPT ---
EXAM DATE/TIME: 06/26/2016 10:31 [place] COMPARISON: MRI BRAIN W/O CONTRAST, May 16, 2016, 15:28. INDICATIONS : Right lower back and right leg pain for three weeks. MEDICAL HISTORY : Cerebrovascular disease. SURGICAL HISTORY : Appendectomy. Hysterectomy. ENCOUNTER: Subsequent ACUITY: 3 weeks PAIN SCORE: 5/10 LOCATION: Right lower back TECHNIQUE: Multiplanar multisequence MRI of the lumbar spine was performed without contrast. FINDINGS: The most caudal appearing lumbar vertebra is numbered as L5. Sagittal T1 and T2-weighted images demonstrate adequate alignment of the lumbar vertebral bodies. The re is an old compression fracture of the superior endplate of L1. There is acute compression fracture of the superior endplate of L4. There is mild bony retropulsion of the superior endplate of L4. The cord terminates in its appropriate location. The paraspinous soft tissues are unremarkable. T12-L1: The thecal space neural foramina are adequate. There is minimal disc bulge. There is minimal bony ret ropulsion with superimposed of L1. L1-L2: The thecal sac has a normal diameter. No evidence of disc bulge or protrusion. The neural foramina are patent bilaterally. L2-L3: There is a degenerated disc with a small broad-based disc bulge. There is moderate facet arthritis bi laterally. There is degenerative facet and ligamentous hypertrophy. The residual thecal space is narr owed bilaterally. The foramina are adequate. L3-L4: There is acute compression fracture of the superior endplate of L4 with mild bony retropulsion. There is broad-based disc protrusion. There is disc material evident effacing the ventral thecal sac and p rojecting into the lateral recess and foraminal on the right. There is moderate facet arthritis bilat erally. There is mild foraminal narrowing on the left as well. Overall, there is at least a moderate degree of spinal stenosis at this level. L4-L5: There is desiccation of the disc. The thecal space is adequate the foramina are adequate. There is mo derate facet arthritis bilaterally. L5-S1: The thecal space and neural foramina are adequate. There mild degenerative changes within the disc bi laterally. CONCLUSION: 1. There is acute compression fractures superior endplate of L4 with mild bony retropulsion. There is broad-based disc protrusion which effaces the ventral thecal sac and projects into the lateral reces s and foraminal on the right. There is at least moderate spinal stenosis at this level. Emanuel Villela MD on June 26, 2016 at 11:38 Board Certified Radiologist. This report was verified electronically.
--- NOTE | 2016-06-26 12:13 | HHI.PR ---
Subjective Remarks Follow-up for right lower back pain and right leg weakness. Patient underwent MRI study today. Dr. Phil Villela came to patient's room and informed that he would not recommend kyphoplasty at this point. A neurosurgery consultation was recommended. Neurosurgery consult has already been placed. Patient denies any fever or chills. Objective Vitals Vital Signs Date Time Temp Pulse Resp B/P Pulse Ox O2 Delivery O2 Flow Rate FiO2 06/26/16 11:47 96.5 65 18 111/55 98 06/26/16 08:00 97.0 65 18 114/52 98 06/26/16 04:00 96.6 70 18 108/63 99 06/25/16 21:10 96.6 67 18 121/55 97 06/25/16 16:00 97.9 66 18 109/56 98 I/O 06/25/16 06/25/16 06/25/16 06/26/16 06/26/16 06/26/16 07:00 15:00 23:00 07:00 15:00 23:00 Intake Total 420 ml 200 ml 240 ml Balance 420 ml 200 ml 240 ml Intake Oral 420 ml 200 ml 240 ml # Voids 6 1 2 # Bowel Movements 0 0 0 Result Diagram: 06/24/16 0557 06/24/16 0557 Imaging Last Impressions Lumbar Spine MRI 06/26/16 0000 Signed Impressions: Service Date/Time: Sunday, June 26, 2016 10:31 - CONCLUSION: 1. There is acute compression fractures superior endplate of L4 with mild bony retropulsion. There is broad-based disc protrusion which effaces the ventral thecal sac and projects into the lateral recess and foraminal on the right. There is at least moderate spinal stenosis at this level. Emanuel Villela MD Lumbar Spine CT 06/25/16 0000 Signed Impressions: Service Date/Time: Saturday, June 25, 2016 09:13 - CONCLUSION: 1. Compression fracture injuries are seen along the superior endplates of L1 and L4. L4 appears to be subacute. 2. Mild retrolisthesis of L2 over L3. 3. Moderate spinal canal stenosis at L3-4 and L4-5. 4. Primary degenerative changes of the lumbar spine with disc space narrowing at L2-3. 5. Broad-based bulging at multiple levels. Cesario Nick MD Head CT 06/25/16 0000 Signed Impressions: Service Date/Time: Saturday, June 25, 2016 09:07 - CONCLUSION: Unremarkable and stable CT brain compared to the prior study. Cesario Nick MD Abdomen/Pelvis CT 06/23/16 1833 Signed Impressions: Service Date/Time: Thursday, June 23, 2016 19:35 - CONCLUSION: 1. No acute findings in abdomen and pelvic CT. Mild fatty liver. No inguinal hernia identified. Virgilio Curran MD Objective Remarks GENERAL: Alert, NAD. SKIN: Warm and dry. HEAD: Normocephalic. EYES: No scleral icterus. No injection or drainage. NECK: Supple, trachea midline. No JVD or lymphadenopathy. CARDIOVASCULAR: Regular rate and rhythm without murmurs, gallops, or rubs. RESPIRATORY: Breath sounds equal bilaterally. No accessory muscle use. GASTROINTESTINAL: Abdomen soft, non-tender, nondistended. MUSCULOSKELETAL: No cyanosis, or edema. BACK: Nontender without obvious deformity. No CVA tenderness. Procedures None A/P Problem List: (1) Compression fracture of L4 lumbar vertebra ICD Code: S32.040A Status: Acute (2) Spinal stenosis of lumbar region ICD Code: M48.06 Status: Acute (3) HLD (hyperlipidemia) ICD Code: E78.5 Status: Acute Assessment and Plan Ms. Cotton is a 76 year old female who was admitted due to right lower back pain and right leg weakness. Patient underwent MRI study today. Shows L4 compression fracture as well as moderate spinal stenosis. Interventional radiology does not recommend kyphoplasty at this point. - L4 compression fracture - Moderate spinal stenosis - Continue pain management with acetaminophen, tramadol, [place]. - Bowel regimen includes Dulcolax suppository, Colace, milk of magnesia. - Neurosurgery consult pending. - Hyperlipidemia - continue pravastatin 80 mg daily at bedtime. We will request PT eval after Neurosurgery evaluation. Full code. Heparin SQ Davide Guido DO Jun 26, 2016 12:13 pm
[2016-06-26] MEDS: ACETAMINOPHEN/HYDROcodone 325 MG/5 MG TAB PO PRN (13:46)
[2016-06-26 16:00] VITALS: BP 100/53; PULSE 66; RESP 18; TEMP 98.4; O2SAT 98
[2016-06-26 20:30] VITALS: BP 112/61; PULSE 66; RESP 18; TEMP 96.3; O2SAT 97
[2016-06-26] MEDS: ACETAMINOPHEN 1000 MG/100 ML VIAL IV SCH (21:20)
[2016-06-26] MEDS: PRAVASTATIN SOD 80 MG TAB PO SCH (21:24)
[2016-06-26] MEDS: GABAPENTIN 300 MG CAP PO SCH (21:24)
[2016-06-27] VITALS (7 sets, daily range): BP systolic 106–120; BP diastolic 52–62; PULSE 64–70; RESP 14–18; TEMP 96.2–97.2; O2SAT 95–99
[2016-06-27] MEDS: HEPARIN SODIUM - SQ 10,000 UNITS/ML VIAL SQ SCH ×3 (05:31→21:51)
[2016-06-27] MEDS: DOCUSATE SODIUM 100 MG CAP PO SCH ×2 (07:37→20:40)
[2016-06-27] MEDS: SODIUM CHLORIDE 0.9% FLUSH 5 ML FLUSH FLUSH SCH ×2 (07:37→21:00)
[2016-06-27] MEDS: NAPROXEN 250 MG TAB PO SCH ×2 (07:37→21:51)
[2016-06-27] MEDS: SENNOSIDES 8.6 MG TAB PO PRN (07:37)
[2016-06-27] MEDS: MAGNESIUM HYDROXIDE SUSP 30 ML CUP PO PRN ×2 (07:38→20:53)
[2016-06-27] MEDS: traMADol HCL 50 MG TAB PO PRN ×2 (07:38→20:40)
[2016-06-27] MEDS: GABAPENTIN 300 MG CAP PO SCH ×2 (07:38→20:39)
[2016-06-27] MEDS: ACETAMINOPHEN 1000 MG/100 ML VIAL IV SCH ×2 (07:38→20:38)
[2016-06-27] MEDS: ACETAMINOPHEN/HYDROcodone 325 MG/5 MG TAB PO PRN ×2 (15:31→21:51)
--- NOTE | 2016-06-27 17:44 | HHI.PR ---
Subjective Remarks Follow-up for right lower back pain and right leg weakness. Ms. Cotton is doing well. She does not complain of pain when she is lying down. However with any kind of movement such as going to the bathroom she reports significant amount of pain. Denies any fever or chills. Family at bedside Objective Vitals Vital Signs Date Time Temp Pulse Resp B/P Pulse Ox O2 Delivery O2 Flow Rate FiO2 06/27/16 16:25 96.4 70 14 113/62 95 06/27/16 12:45 96.2 64 16 111/58 99 06/27/16 12:00 96.4 64 16 111/58 98 06/27/16 08:00 96.4 68 16 106/52 96 06/27/16 00:32 97.2 65 18 107/52 99 06/26/16 20:30 96.3 66 18 112/61 97 I/O 06/26/16 06/26/16 06/26/16 06/27/16 06/27/16 06/27/16 07:00 15:00 23:00 07:00 15:00 23:00 Intake Total 240 ml 590 ml 360 ml Balance 240 ml 590 ml 360 ml Intake Oral 240 ml 480 ml 360 ml IV Total 110 ml # Voids 2 5 3 # Bowel Movements 0 0 0 Result Diagram: 06/24/16 0557 06/24/16 0557 Imaging Last Impressions Lumbar Spine MRI 06/26/16 0000 Signed Impressions: Service Date/Time: Sunday, June 26, 2016 10:31 - CONCLUSION: 1. There is acute compression fractures superior endplate of L4 with mild bony retropulsion. There is broad-based disc protrusion which effaces the ventral thecal sac and projects into the lateral recess and foraminal on the right. There is at least moderate spinal stenosis at this level. Emanuel Villela MD Lumbar Spine CT 06/25/16 0000 Signed Impressions: Service Date/Time: Saturday, June 25, 2016 09:13 - CONCLUSION: 1. Compression fracture injuries are seen along the superior endplates of L1 and L4. L4 appears to be subacute. 2. Mild retrolisthesis of L2 over L3. 3. Moderate spinal canal stenosis at L3-4 and L4-5. 4. Primary degenerative changes of the lumbar spine with disc space narrowing at L2-3. 5. Broad-based bulging at multiple levels. Cesario Nick MD Head CT 06/25/16 0000 Signed Impressions: Service Date/Time: Saturday, June 25, 2016 09:07 - CONCLUSION: Unremarkable and stable CT brain compared to the prior study. Cesario Nick MD Abdomen/Pelvis CT 06/23/16 1833 Signed Impressions: Service Date/Time: Thursday, June 23, 2016 19:35 - CONCLUSION: 1. No acute findings in abdomen and pelvic CT. Mild fatty liver. No inguinal hernia identified. Virgilio Curran MD Objective Remarks GENERAL: Alert, NAD. SKIN: Warm and dry. HEAD: Normocephalic. EYES: No scleral icterus. No injection or drainage. NECK: Supple, trachea midline. No JVD or lymphadenopathy. CARDIOVASCULAR: Regular rate and rhythm without murmurs, gallops, or rubs. RESPIRATORY: Breath sounds equal bilaterally. No accessory muscle use. GASTROINTESTINAL: Abdomen soft, non-tender, nondistended. MUSCULOSKELETAL: No cyanosis, or edema. BACK: Nontender without obvious deformity. No CVA tenderness. Procedures None A/P Problem List: (1) Compression fracture of L4 lumbar vertebra ICD Code: S32.040A Status: Acute (2) Spinal stenosis of lumbar region ICD Code: M48.06 Status: Acute (3) HLD (hyperlipidemia) ICD Code: E78.5 Status: Acute Assessment and Plan Ms. Cotton is a 76 year old female who was admitted due to right lower back pain and right leg weakness. Patient underwent MRI study today. Shows L4 compression fracture as well as moderate spinal stenosis. Interventional radiology does not recommend kyphoplasty at this point. - L4 compression fracture - Moderate spinal stenosis - Continue pain management with acetaminophen, tramadol, [place]. - Bowel regimen includes Dulcolax suppository, Colace, milk of magnesia. - Neurosurgery consulted. Discussed with Neurosurgery who recommended LSO brace, PT and gabapentin for now. - Will order LSO brace (soft). - Neurosurgery will evaluate patient tomorrow PM. - Hyperlipidemia - continue pravastatin 80 mg daily at bedtime. We will request PT eval after Neurosurgery evaluation. Full code. Heparin SQ Davide Guido DO Jun 27, 2016 5:44 pm
[2016-06-27] MEDS: PRAVASTATIN SOD 80 MG TAB PO SCH (20:39)
[2016-06-28 00:20] VITALS: BP 95/52; PULSE 62; RESP 17; TEMP 97.5; O2SAT 95
[2016-06-28] MEDS: HEPARIN SODIUM - SQ 10,000 UNITS/ML VIAL SQ SCH ×3 (06:42→21:21)
[2016-06-28 07:47] VITALS: BP 110/56; PULSE 60; RESP 16; TEMP 97.5; O2SAT 98
[2016-06-28] MEDS: DOCUSATE SODIUM 100 MG CAP PO SCH ×2 (08:58→19:32)
[2016-06-28] MEDS: GABAPENTIN 300 MG CAP PO SCH (08:58)
[2016-06-28] MEDS: NAPROXEN 250 MG TAB PO SCH ×2 (08:58→21:21)
[2016-06-28] MEDS: ACETAMINOPHEN 1000 MG/100 ML VIAL IV SCH ×2 (08:58→19:37)
[2016-06-28] MEDS: SODIUM CHLORIDE 0.9% FLUSH 5 ML FLUSH FLUSH SCH ×2 (09:00→19:37)
--- NOTE | 2016-06-28 09:11 | PD.CONS ---
HPI Service neurosurgery Consult Requested By Dr Coates/Lata Reason for Consult Severe pain to the right groin with walking/standing Primary Care Physician No Primary Care Physician History of Present Illness 76 yr old lady presented with a compression fx at L4. She denies any trauma but did move furniture in the recent past. She is generally healthy and active. She has severe short term memory loss but is safe at home with the care of her and sister. She has no incontinence. She had a rash from augmentin but no rashes at this time. A steroid injection as an outpatient helped but the pain recurred soon after the injection. Review of Systems Constitutional: DENIES: Diaphoretic episodes, Fatigue, Fever, Weight gain, Weight loss, Chills, Dizziness, Change in appetite, Night Sweats Endocrine: DENIES: Abnorml menstrual pattern, Heat/cold intolerance, Polydipsia , Polyuria, Polyphagia Eyes: DENIES: Blurred vision, Diplopia, Eye inflammation, Eye pain, Vision loss , Photosensitivity, Double Vision Ears, nose, mouth, throat: DENIES: Tinnitus, Hearing loss, Vertigo, Nasal discharge, Oral lesions, Throat pain, Hoarseness, Ear Pain, Running Nose, Epistaxis, Sinus Pain, Toothache, Odynophagia Respiratory: DENIES: Apneas, Cough, Snoring, Wheezing, Hemoptysis, Sputum production, Shortness of breath Cardiovascular: DENIES: Chest pain, Palpitations, Syncope, Dyspnea on Exertion , PND, Lower Extremity Edema, Orthopnea, Claudication Genitourinary: DENIES: Abnormal vaginal bleeding, Dysmenorrhea, Dyspareunia, Sexual dysfunction, Urinary frequency, Urinary incontinence, Urgency, Hematuria , Dysuria, Nocturia, Vaginal discharge Musculoskeletal: COMPLAINS OF: Back pain Integumentary: DENIES: Abnormal pigmentation, Pruritus, Rash, Nail changes, Breast masses, Breast skin changes, Nipple discharge Hematologic/lymphatic: DENIES: Bruising, Lymphadenopathy Immunologic/allergic: DENIES: Eczema, Urticaria Neurologic: DENIES: Abnormal gait, Headache, Localized weakness, Paresthesias, Seizures, Speech Problems, Tremor, Poor Balance Psychiatric: DENIES: Anxiety, Confusion, Mood changes, Depression, Hallucinations, Agitation, Suicidal Ideation, Homicidal Ideation, Delusions Past Family Social History Allergies: Coded Allergies: Penicillin (Verified Allergy, Severe, HIVES, 06/23/16) Past Medical History Hypercholesterolemia Short term memory loss Reported Medications Reported Meds & Active Scripts Active Meclizine (Meclizine HCl) 25 Mg Chew 25 Mg CHEW TID PRN Reported Simvastatin 40 Mg Tab 40 Mg PO HS Family History Father has dementia Social History Lives with her , does not smoke or drink Physical Exam Vital Signs Vital Signs Date Time Temp Pulse Resp B/P Pulse Ox O2 Delivery O2 Flow Rate FiO2 06/28/16 07:47 97.5 60 16 110/56 98 06/28/16 00:20 97.5 62 17 95/52 95 06/27/16 22:51 18 06/27/16 21:40 18 06/27/16 20:39 96.6 67 16 120/58 98 06/27/16 19:21 96.6 67 16 120/58 98 06/27/16 16:25 96.4 70 14 113/62 95 06/27/16 12:45 96.2 64 16 111/58 99 06/27/16 12:00 96.4 64 16 111/58 98 Physical Exam Alert and cooperative, follows commands with no difficulty, Oriented to and family, as well as dog, but does not know the hospital name, city or year EOMI, face symmetric, speech fluent, able to do simple calculations 100-7, 93- 3. Motor 5/5 in the delt/bic/tri/HF/quads/ant tib and ehl as well as gastroc No sensory level or sensory radicular loss in T12, L1, L2, L3, L4, L5 Hyporeflexic throughout including patella and ankles, no clonus or Babinski Skin is warm and dry, No peripheral edema, abd soft, heart rate regular, lungs clear, balance good with independent ability to get OOB and walk/turn. Result Diagram: 06/24/16 0557 06/24/16 0557 Imaging Last Impressions Lumbar Spine MRI 06/26/16 0000 Signed Impressions: Service Date/Time: Sunday, June 26, 2016 10:31 - CONCLUSION: 1. There is acute compression fractures superior endplate of L4 with mild bony retropulsion. There is broad-based disc protrusion which effaces the ventral thecal sac and projects into the lateral recess and foraminal on the right. There is at least moderate spinal stenosis at this level. Emanuel Villela MD Lumbar Spine CT 06/25/16 0000 Signed Impressions: Service Date/Time: Saturday, June 25, 2016 09:13 - CONCLUSION: 1. Compression fracture injuries are seen along the superior endplates of L1 and L4. L4 appears to be subacute. 2. Mild retrolisthesis of L2 over L3. 3. Moderate spinal canal stenosis at L3-4 and L4-5. 4. Primary degenerative changes of the lumbar spine with disc space narrowing at L2-3. 5. Broad-based bulging at multiple levels. Cesario Nick MD Head CT 06/25/16 0000 Signed Impressions: Service Date/Time: Saturday, June 25, 2016 09:07 - CONCLUSION: Unremarkable and stable CT brain compared to the prior study. Cesario Nick MD Abdomen/Pelvis CT 06/23/16 1833 Signed Impressions: Service Date/Time: Thursday, June 23, 2016 19:35 - CONCLUSION: 1. No acute findings in abdomen and pelvic CT. Mild fatty liver. No inguinal hernia identified. Virgilio Curran MD Course The patient did well with medical management but still has severe radicular pain to the right buttock and groin. Assessment and Plan Diagnosis: (1) Spinal stenosis of lumbar region ICD Code: M48.06 Assessment and Plan The right groin pain is likely from the compression of the L3 nerve root. The MRI shows healed L1 fracture and and an acute L4 fracture associated with severe canal stenosis at L3/4 with a ligament tear at that level on the right side An L3/4 bilateral decompression for stenosis would allow for decreased radicular pain. The risk of infection, bleeding, anesthesia complications such as blood clots, recurrence or persistence of the pain were discussed with the patient and her sister Chase. The gabapentin can help decrease the pain and should be tapered to 100 mg at the time of discharge. The absence of reflexes suggests some degree of neuropathy. A TSH level was requested as well. Medical management of these problems are best done as an outpatient. They agreed to proceed with surgery if her agrees on Sunday morning. She could be discharged hopefully on Sunday with home health care for PT. The LSO brace does not help her pain very much. A vitamin D level is requested and a dexa scan should be obtained as an outpatient. Umer Gotti Jun 28, 2016 09:11
[2016-06-28] MEDS: ACETAMINOPHEN/HYDROcodone 325 MG/5 MG TAB PO PRN ×2 (09:53→19:36)
[2016-06-28 12:10] VITALS: BP 104/64; PULSE 60; RESP 16; TEMP 97.7; O2SAT 97
--- NOTE | 2016-06-28 13:23 | HHI.PR ---
Subjective Remarks Follow-up for right lower back pain and right leg weakness. Ms. Cotton is doing well. Earlier she had some pain. No fever, chills. Family members at bedside. Objective Vitals Vital Signs Date Time Temp Pulse Resp B/P Pulse Ox O2 Delivery O2 Flow Rate FiO2 06/28/16 07:47 97.5 60 16 110/56 98 06/28/16 00:20 97.5 62 17 95/52 95 06/27/16 22:51 18 06/27/16 21:40 18 06/27/16 20:39 96.6 67 16 120/58 98 06/27/16 19:21 96.6 67 16 120/58 98 06/27/16 16:25 96.4 70 14 113/62 95 I/O 06/27/16 06/27/16 06/27/16 06/28/16 06/28/16 06/28/16 07:00 15:00 23:00 07:00 15:00 23:00 Intake Total 360 ml 480 ml 460 ml 360 ml Output Total 1 ml Balance 360 ml 480 ml 459 ml 360 ml Intake Oral 360 ml 480 ml 360 ml 360 ml IV Total 100 ml Output Stool Total 1 ml # Voids 3 4 2 4 # Bowel Movements 0 0 0 4 Result Diagram: 06/24/16 0557 06/24/16 0557 Imaging Last Impressions Lumbar Spine MRI 06/26/16 0000 Signed Impressions: Service Date/Time: Sunday, June 26, 2016 10:31 - CONCLUSION: 1. There is acute compression fractures superior endplate of L4 with mild bony retropulsion. There is broad-based disc protrusion which effaces the ventral thecal sac and projects into the lateral recess and foraminal on the right. There is at least moderate spinal stenosis at this level. Emanuel Villela MD Lumbar Spine CT 06/25/16 0000 Signed Impressions: Service Date/Time: Saturday, June 25, 2016 09:13 - CONCLUSION: 1. Compression fracture injuries are seen along the superior endplates of L1 and L4. L4 appears to be subacute. 2. Mild retrolisthesis of L2 over L3. 3. Moderate spinal canal stenosis at L3-4 and L4-5. 4. Primary degenerative changes of the lumbar spine with disc space narrowing at L2-3. 5. Broad-based bulging at multiple levels. Cesario Nick MD Head CT 06/25/16 0000 Signed Impressions: Service Date/Time: Saturday, June 25, 2016 09:07 - CONCLUSION: Unremarkable and stable CT brain compared to the prior study. Cesario Nick MD Abdomen/Pelvis CT 06/23/16 1833 Signed Impressions: Service Date/Time: Thursday, June 23, 2016 19:35 - CONCLUSION: 1. No acute findings in abdomen and pelvic CT. Mild fatty liver. No inguinal hernia identified. Virgilio Curran MD Objective Remarks GENERAL: Alert, NAD. SKIN: Warm and dry. HEAD: Normocephalic. EYES: No scleral icterus. No injection or drainage. NECK: Supple, trachea midline. No JVD or lymphadenopathy. CARDIOVASCULAR: Regular rate and rhythm without murmurs, gallops, or rubs. RESPIRATORY: Breath sounds equal bilaterally. No accessory muscle use. GASTROINTESTINAL: Abdomen soft, non-tender, nondistended. MUSCULOSKELETAL: No cyanosis, or edema. BACK: Nontender without obvious deformity. No CVA tenderness. Procedures None A/P Problem List: (1) Compression fracture of L4 lumbar vertebra ICD Code: S32.040A Status: Acute (2) Spinal stenosis of lumbar region ICD Code: M48.06 Status: Acute (3) HLD (hyperlipidemia) ICD Code: E78.5 Status: Acute Assessment and Plan Ms. Cotton is a 76 year old female who was admitted due to right lower back pain and right leg weakness. Patient underwent MRI study today. Shows L4 compression fracture as well as moderate spinal stenosis. Interventional radiology does not recommend kyphoplasty at this point. - L4 compression fracture - Moderate spinal stenosis - Continue pain management with acetaminophen, tramadol, [place] as well as Naproxen, Gabapentin. - Bowel regimen includes Dulcolax suppository, Colace, milk of magnesia. - Neurosurgery recommendations much appreciated. - Discussed with Dr. Gotti who may consider decompression of L3/L4 on 2016. - Will order Dexascan on discharge. - Gabapentin dose decreased. If needed, we will titrate it up. Low dose Gabapentin on discharge. - Hyperlipidemia - continue pravastatin 80 mg daily at bedtime. Full code. Heparin SQ Davide Guido DO Jun 28, 2016 13:23
[2016-06-28 13:36] LABS: FREE T4 1.18 NG/DL (0.76-1.46)
[2016-06-28 15:53] VITALS: BP 104/47; PULSE 63; RESP 16; TEMP 97.1; O2SAT 96
[2016-06-28] MEDS: GABAPENTIN 100 MG CAP PO SCH (19:31)
[2016-06-28] MEDS: PRAVASTATIN SOD 80 MG TAB PO SCH (19:32)
[2016-06-28 19:33] VITALS: BP 106/54; PULSE 72; RESP 16; TEMP 98.8; O2SAT 96
[2016-06-29 00:10] VITALS: BP 120/58; PULSE 68; RESP 16; TEMP 97.4; O2SAT 98
[2016-06-29] MEDS: ACETAMINOPHEN/HYDROcodone 325 MG/5 MG TAB PO PRN ×2 (02:39→10:31)
[2016-06-29] MEDS: HEPARIN SODIUM - SQ 10,000 UNITS/ML VIAL SQ SCH ×3 (05:03→21:40)
[2016-06-29 08:00] VITALS: BP 125/59; PULSE 68; RESP 18; TEMP 97.4; O2SAT 97
[2016-06-29] MEDS ORDERED: CLINDAMYCIN PHOS 600 MG/4 ML VIAL IM SCH (08:00)
[2016-06-29] MEDS: ACETAMINOPHEN 1000 MG/100 ML VIAL IV SCH ×2 (08:21→21:36)
[2016-06-29] MEDS: GABAPENTIN 100 MG CAP PO SCH ×2 (08:21→20:18)
[2016-06-29] MEDS: DOCUSATE SODIUM 100 MG CAP PO SCH ×2 (08:21→20:18)
[2016-06-29] MEDS: SODIUM CHLORIDE 0.9% FLUSH 5 ML FLUSH FLUSH SCH ×2 (08:23→20:19)
[2016-06-29] MEDS: NAPROXEN 250 MG TAB PO SCH ×2 (10:30→21:40)
[2016-06-29 11:40] VITALS: BP 113/50; PULSE 68; RESP 18; TEMP 97.4; O2SAT 97
[2016-06-29 16:00] VITALS: BP 100/50; PULSE 66; RESP 18; TEMP 97.8; O2SAT 98
--- NOTE | 2016-06-29 17:43 | HHI.PR ---
Subjective Remarks Follow-up for right lower back pain and right leg weakness. Patient is currently doing well. She complains of pain only when she gets up and goes to the bathroom and such. No new concerns. Objective Vitals Vital Signs Date Time Temp Pulse Resp B/P Pulse Ox O2 Delivery O2 Flow Rate FiO2 06/29/16 11:40 97.4 68 18 113/50 97 06/29/16 08:05 Room Air 06/29/16 08:00 97.4 68 18 125/59 97 06/29/16 03:12 18 06/29/16 00:10 97.4 68 16 120/58 98 06/28/16 19:33 98.8 72 16 106/54 96 I/O 06/28/16 06/28/16 06/28/16 06/29/16 06/29/16 06/29/16 07:00 15:00 23:00 07:00 15:00 23:00 Intake Total 360 ml 660 ml 480 ml 240 ml Balance 360 ml 660 ml 480 ml 240 ml Intake Oral 360 ml 660 ml 480 ml 240 ml # Voids 4 3 3 1 # Bowel Movements 4 0 0 Imaging Last Impressions Lumbar Spine MRI 06/26/16 0000 Signed Impressions: Service Date/Time: Sunday, June 26, 2016 10:31 - CONCLUSION: 1. There is acute compression fractures superior endplate of L4 with mild bony retropulsion. There is broad-based disc protrusion which effaces the ventral thecal sac and projects into the lateral recess and foraminal on the right. There is at least moderate spinal stenosis at this level. Emanuel Villela MD Lumbar Spine CT 06/25/16 0000 Signed Impressions: Service Date/Time: Saturday, June 25, 2016 09:13 - CONCLUSION: 1. Compression fracture injuries are seen along the superior endplates of L1 and L4. L4 appears to be subacute. 2. Mild retrolisthesis of L2 over L3. 3. Moderate spinal canal stenosis at L3-4 and L4-5. 4. Primary degenerative changes of the lumbar spine with disc space narrowing at L2-3. 5. Broad-based bulging at multiple levels. Cesario Nick MD Head CT 06/25/16 0000 Signed Impressions: Service Date/Time: Saturday, June 25, 2016 09:07 - CONCLUSION: Unremarkable and stable CT brain compared to the prior study. Cesario Nick MD Abdomen/Pelvis CT 06/23/16 1833 Signed Impressions: Service Date/Time: Thursday, June 23, 2016 19:35 - CONCLUSION: 1. No acute findings in abdomen and pelvic CT. Mild fatty liver. No inguinal hernia identified. Virgilio Curran MD Objective Remarks GENERAL: Alert, NAD. SKIN: Warm and dry. HEAD: Normocephalic. EYES: No scleral icterus. No injection or drainage. NECK: Supple, trachea midline. No JVD or lymphadenopathy. CARDIOVASCULAR: Regular rate and rhythm without murmurs, gallops, or rubs. RESPIRATORY: Breath sounds equal bilaterally. No accessory muscle use. GASTROINTESTINAL: Abdomen soft, non-tender, nondistended. MUSCULOSKELETAL: No cyanosis, or edema. BACK: Nontender without obvious deformity. No CVA tenderness. Procedures None A/P Problem List: (1) Compression fracture of L4 lumbar vertebra ICD Code: S32.040A Status: Acute (2) Spinal stenosis of lumbar region ICD Code: M48.06 Status: Acute (3) HLD (hyperlipidemia) ICD Code: E78.5 Status: Acute Assessment and Plan Ms. Cotton is a 76 year old female who was admitted due to right lower back pain and right leg weakness. Patient underwent MRI study today. Shows L4 compression fracture as well as moderate spinal stenosis. Interventional radiology does not recommend kyphoplasty at this point. - L4 compression fracture - Moderate spinal stenosis - Continue pain management with acetaminophen, tramadol, [place] as well as Naproxen, Gabapentin. - Bowel regimen includes Dulcolax suppository, Colace, milk of magnesia. - Neurosurgery recommendations much appreciated. - Discussed with Dr. Gotti on 06/28/2016 who may consider decompression of L3/L4 on 07/01/2016. - Will order Dexascan on discharge. - Gabapentin dose decreased. Patient is doing well on this low dose gabapentin. - Hyperlipidemia - continue pravastatin 80 mg daily at bedtime. Full code. Heparin SQ Davide Guido DO Jun 29, 2016 5:43 pm
[2016-06-29] MEDS: PRAVASTATIN SOD 80 MG TAB PO SCH (20:18)
[2016-06-29 20:50] VITALS: BP 115/52; PULSE 69; RESP 17; TEMP 96.1; O2SAT 97
[2016-06-30] MEDS: ACETAMINOPHEN/HYDROcodone 325 MG/5 MG TAB PO PRN ×2 (00:10→05:07)
[2016-06-30 00:30] VITALS: BP 121/58; PULSE 68; RESP 17; TEMP 97.4; O2SAT 97
[2016-06-30 04:15] VITALS: BP 111/57; PULSE 60; RESP 17; TEMP 96.4; O2SAT 98
[2016-06-30] MEDS: HEPARIN SODIUM - SQ 10,000 UNITS/ML VIAL SQ SCH ×3 (04:23→21:10)
[2016-06-30] MEDS: DOCUSATE SODIUM 100 MG CAP PO SCH ×2 (07:36→21:09)
[2016-06-30] MEDS: GABAPENTIN 100 MG CAP PO SCH ×2 (07:36→21:09)
[2016-06-30 07:47] VITALS: BP 109/57; PULSE 68; RESP 16; TEMP 97; O2SAT 98
[2016-06-30] MEDS: ACETAMINOPHEN 1000 MG/100 ML VIAL IV SCH ×2 (09:00→21:09)
[2016-06-30] MEDS: SODIUM CHLORIDE 0.9% FLUSH 5 ML FLUSH FLUSH SCH ×2 (09:00→21:10)
[2016-06-30] MEDS: NAPROXEN 250 MG TAB PO SCH ×2 (10:00→21:08)
[2016-06-30] MEDS ORDERED: PROPOFOL 200 MG/20 ML AMP IV ONE (10:48)
[2016-06-30] MEDS ORDERED: NEOSTIGMINE 3 MG/3 ML SYR IV ONE (10:49)
[2016-06-30] MEDS ORDERED: ONDANSETRON HCL 4 MG/2 ML VIAL IV PUSH ONE (10:49)
[2016-06-30] MEDS ORDERED: ePHEDrine/NS 25 MG/5 ML SYR IV ONE (10:49)
[2016-06-30] MEDS ORDERED: ROUNMIS (11:53)
[2016-06-30] MEDS ORDERED: ROLLER WALKER1 MI1 (11:53)
[2016-06-30 12:24] VITALS: BP 112/64; PULSE 70; RESP 16; TEMP 98.4; O2SAT 97
--- NOTE | 2016-06-30 14:49 | HHI.PR ---
Subjective Remarks Follow-up for right lower back pain and right leg weakness. Ms. Cotton is waiting for surgery today. No acute concerns. No fever, chills. Objective Vitals Vital Signs Date Time Temp Pulse Resp B/P Pulse Ox O2 Delivery O2 Flow Rate FiO2 06/30/16 12:24 98.4 70 16 112/64 97 06/30/16 07:47 97.0 68 16 109/57 98 06/30/16 07:37 Room Air 06/30/16 04:15 96.4 60 17 111/57 98 06/30/16 00:30 97.4 68 17 121/58 97 06/29/16 21:00 Room Air 06/29/16 20:50 96.1 69 17 115/52 97 06/29/16 16:00 97.8 66 18 100/50 98 I/O 06/29/16 06/29/16 06/29/16 06/30/16 06/30/16 06/30/16 07:00 15:00 23:00 07:00 15:00 23:00 Intake Total 240 ml 960 ml 0 ml Balance 240 ml 960 ml 0 ml Intake Oral 240 ml 960 ml 0 ml # Voids 1 5 1 # Bowel Movements 0 0 0 Imaging Last Impressions Lumbar Spine MRI 06/26/16 0000 Signed Impressions: Service Date/Time: Sunday, June 26, 2016 10:31 - CONCLUSION: 1. There is acute compression fractures superior endplate of L4 with mild bony retropulsion. There is broad-based disc protrusion which effaces the ventral thecal sac and projects into the lateral recess and foraminal on the right. There is at least moderate spinal stenosis at this level. Emanuel Villela MD Lumbar Spine CT 06/25/16 0000 Signed Impressions: Service Date/Time: Saturday, June 25, 2016 09:13 - CONCLUSION: 1. Compression fracture injuries are seen along the superior endplates of L1 and L4. L4 appears to be subacute. 2. Mild retrolisthesis of L2 over L3. 3. Moderate spinal canal stenosis at L3-4 and L4-5. 4. Primary degenerative changes of the lumbar spine with disc space narrowing at L2-3. 5. Broad-based bulging at multiple levels. Cesario Nick MD Head CT 06/25/16 0000 Signed Impressions: Service Date/Time: Saturday, June 25, 2016 09:07 - CONCLUSION: Unremarkable and stable CT brain compared to the prior study. Cesario Nick MD Abdomen/Pelvis CT 06/23/16 1833 Signed Impressions: Service Date/Time: Thursday, June 23, 2016 19:35 - CONCLUSION: 1. No acute findings in abdomen and pelvic CT. Mild fatty liver. No inguinal hernia identified. Virgilio Curran MD Objective Remarks GENERAL: Alert, NAD. SKIN: Warm and dry. HEAD: Normocephalic. EYES: No scleral icterus. No injection or drainage. NECK: Supple, trachea midline. No JVD or lymphadenopathy. CARDIOVASCULAR: Regular rate and rhythm without murmurs, gallops, or rubs. RESPIRATORY: Breath sounds equal bilaterally. No accessory muscle use. GASTROINTESTINAL: Abdomen soft, non-tender, nondistended. MUSCULOSKELETAL: No cyanosis, or edema. BACK: Nontender without obvious deformity. No CVA tenderness. Procedures None A/P Problem List: (1) Compression fracture of L4 lumbar vertebra ICD Code: S32.040A Status: Acute (2) Spinal stenosis of lumbar region ICD Code: M48.06 Status: Acute (3) HLD (hyperlipidemia) ICD Code: E78.5 Status: Acute Assessment and Plan Ms. Cotton is a 76 year old female who was admitted due to right lower back pain and right leg weakness. Patient underwent MRI study today. Shows L4 compression fracture as well as moderate spinal stenosis. Interventional radiology does not recommend kyphoplasty at this point. - L4 compression fracture - Moderate spinal stenosis - Continue pain management with acetaminophen, tramadol, [place] as well as Naproxen, Gabapentin. - Bowel regimen includes Dulcolax suppository, Colace, milk of magnesia. - Neurosurgery recommendations much appreciated. - Discussed with Dr. Gotti on 06/28/2016. Surgical decompression of L3/L4 on 07/01/2016. - Dexascan on discharge. - Gabapentin dose decreased. Patient is doing well on this low dose gabapentin. - Hyperlipidemia - continue pravastatin 80 mg daily at bedtime. Full code. Heparin SQ Davide Guido DO Jun 30, 2016 2:49 pm
[2016-06-30] MEDS ORDERED: GELFOAM SIZE 100 ONE ×2 (14:51→15:07)
[2016-06-30] MEDS ORDERED: LIDOCAINE 1%/EPINEPHrine 1:100,000 SOLN 30 ML VIAL ONE (14:51)
[2016-06-30] MEDS ORDERED: BUPIVACAINE HCL PF 0.5% 30 ML VIAL ONE (14:51)
[2016-06-30] MEDS ORDERED: THROMBIN (TOPICAL) 5,000 UNIT VIAL ONE (14:51)
[2016-06-30] MEDS ORDERED: FAMOTIDINE 20 MG/2 ML VIAL ONE (15:06)
[2016-06-30] MEDS ORDERED: SODIUM CHLORIDE 0.9% INJ 100 ML ONE (15:31)
[2016-06-30] MEDS ORDERED: ACETAMINOPHEN 1000 MG/100 ML VIAL IV ONE (16:22)
[2016-06-30] MEDS ORDERED: DICLOFENAC SODIUM 37.5 MG/ML VIAL IV PUSH ONE (16:22)
--- NOTE | 2016-06-30 17:01 | EKG ---
Date Performed: 06/29/2016 Time Performed: 13:48:59 PTAGE: 76 years EKG: Sinus rhythm Compared to prior tracing no significant change NORMAL ECG PREVIOUS TRACING : 05/16/2016 11.46 DOCTOR: David Lewis Interpretating Date/Time 06/30/2016 16:55:37
[2016-06-30] MEDS ORDERED: MIDAZOLAM HCL 2 MG/2 ML VIAL ONE (18:11)
[2016-06-30] MEDS ORDERED: fentaNYL CITRATE 250 MCG/5 ML AMP ONE (18:11)
--- NOTE | 2016-06-30 18:34 | RADRPT ---
EXAM DATE/TIME: 06/30/2016 17:08 [facility] COMPARISON: No previous studies available for comparison. INDICATIONS : Laminotomy, L3-L4. MEDICAL HISTORY : Cerebrovascular disease. SURGICAL HISTORY : Appendectomy. Hysterectomy. ENCOUNTER: Initial ACUITY: 1 day PAIN SCORE: Non-responsive. LOCATION: Lumbar Spine. FINDINGS: A single lateral view of the lumbar spine was performed. There appears to be a probe/needle directed towards the L3-L4 posterior elements. CONCLUSION: Localization as described above. Nilson Munoz MD on June 30, 2016 at 18:31 Board Certified Radiologist. This report was verified electronically.
[2016-06-30 19:30] VITALS: BP 119/56; PULSE 63; RESP 16; TEMP 97.7; O2SAT 99
[2016-06-30] MEDS: PRAVASTATIN SOD 80 MG TAB PO SCH (21:09)
[2016-06-30] MEDS: ACETAMINOPHEN/HYDROcodone 325 MG/5 MG TAB PO SCH (21:09)
[2016-07-01 00:10] VITALS: BP 102/65; PULSE 70; RESP 16; TEMP 97.6; O2SAT 97
[2016-07-01] MEDS: ACETAMINOPHEN/HYDROcodone 325 MG/5 MG TAB PO SCH ×4 (03:37→13:17)
[2016-07-01] MEDS: HEPARIN SODIUM - SQ 10,000 UNITS/ML VIAL SQ SCH (03:38)
[2016-07-01 03:59] VITALS: BP 109/55; PULSE 75; RESP 16; TEMP 96; O2SAT 97
[2016-07-01] MEDS: traMADol HCL 50 MG TAB PO PRN (05:06)
[2016-07-01 08:00] VITALS: BP 117/50; PULSE 70; RESP 18; TEMP 97.5; O2SAT 98
[2016-07-01] MEDS: GABAPENTIN 100 MG CAP PO SCH (09:19)
[2016-07-01] MEDS: DOCUSATE SODIUM 100 MG CAP PO SCH (09:19)
[2016-07-01] MEDS: NAPROXEN 250 MG TAB PO SCH (09:23)
--- NOTE | 2016-07-01 09:46 | HHI.NSPN ---
History Chief Complaint: Mild post op pain controlled. Interval History 76 yr old lady presented with a compression fx at L4. She denies any trauma but did move furniture in the recent past. She is generally healthy and active. She has severe short term memory loss but is safe at home with the care of her and sister. She has no incontinence. She had a rash from augmentin but no rashes at this time. A steroid injection as an outpatient helped but the pain recurred soon after the injection. 07/01/16: Pt awake and alert. Ready to go home. Pain controlled. Ambulated in espinal. Review of Systems General: Negative for: fever, chills, insomnia Respiratory: Negative for: shortness of breath, cough, sputum Cardiovascular: Negative for: chest pain Gastrointestinal: Negative for: nausea, vomitting, diarrhea, constipation Exam Results Vital Signs Date Time Temp Pulse Resp B/P Pulse Ox O2 Delivery O2 Flow Rate FiO2 07/01/16 08:00 97.5 70 18 117/50 98 06/30/16 20:00 Nasal Cannula 2.00 Intake and Output 06/30/16 06/30/16 06/30/16 07:59 15:59 23:59 Intake Total 0 ml 0 ml 2505 ml Output Total 20 ml Balance 0 ml 0 ml 2485 ml Physical Examination Resp: CTA bilaterally Heart: NSR no murmurs Abd: Soft positive bs Skin: No cyanosis or erythema Muscle: Ambulating well Neuro: Pt awake and alert. Follows commands well. Face symmetric. Lab, Micro, Other Results 06/30/16 06/30/16 07/01/16 14:59 22:59 06:59 Intake Total 0 ml 2505 ml 557 ml Output Total 20 ml Balance 0 ml 2485 ml 557 ml Intake Oral 0 ml 360 ml 240 ml IV Total 1145 ml 317 ml Other 1000 ml Output Urine Total 0 ml Estimated Blood Loss 20 ml Other 0 ml # Voids 3 2 6 Medical Decision Making Impression and Plan A: 76 y/o FM s/p L3/L4 decompression for spinal stenosis P: Discharge pt home Continue with current care Follow up with Dr. Gotti. Sam Du Jul 01, 2016 09:46
[2016-07-01 12:00] VITALS: BP 112/50; PULSE 68; RESP 18; TEMP 98; O2SAT 97
[2016-07-01] MEDS ORDERED: HYDR-3516 PO (13:03)
--- NOTE | 2016-07-01 13:04 | HHI.DS ---
Discharge Summary Admission Date Jun 23, 2016 at 9:23 pm Discharge Date: Jul 01, 2016 Admitting Diagnosis R PELVIC PAIN, INTRACTABLE, INABILITY TO WALK (1) Compression fracture of L4 lumbar vertebra ICD Code: S32.040A (2) Spinal stenosis of lumbar region ICD Code: M48.06 (3) HLD (hyperlipidemia) ICD Code: E78.5 Procedures None Brief History - From Admission This patient is a 76-year-old female who came to the emergency room with complaints of 3 weeks of right back pain and right leg weakness and inability to ambulate due to the pain. She has noted no trauma or recent injury to the area although 30 years ago she says she had some sort of tell bone fracture which was managed quite conservatively. She has not had any fevers or chills and notes no urinary troubles or dysuria. She did see her primary doctor and had x-rays done and was given steroids which did help a little. However currently she cannot ambulate without severe weakness and severe pain. There is no urinary or stool incontinence. She has no numbness in the leg. Upper extremities are within normal limits. 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 She tried ibuprofen without much relief and finally came to the emergency room for further evaluation. She says she felt better on the steroids but once she discontinued and the pain came back worse. Patient has been recommended for further observation and treatment in the hospital by the ER physician. Imaging Last Impressions Lumbar Spine X-Ray 06/30/16 0000 Signed Impressions: Service Date/Time: Thursday, June 30, 2016 17:08 - CONCLUSION: Localization as described above. Nilson Munoz MD Lumbar Spine MRI 06/26/16 0000 Signed Impressions: Service Date/Time: Sunday, June 26, 2016 10:31 - CONCLUSION: 1. There is acute compression fractures superior endplate of L4 with mild bony retropulsion. There is broad-based disc protrusion which effaces the ventral thecal sac and projects into the lateral recess and foraminal on the right. There is at least moderate spinal stenosis at this level. Emanuel Villela MD Lumbar Spine CT 06/25/16 0000 Signed Impressions: Service Date/Time: Saturday, June 25, 2016 09:13 - CONCLUSION: 1. Compression fracture injuries are seen along the superior endplates of L1 and L4. L4 appears to be subacute. 2. Mild retrolisthesis of L2 over L3. 3. Moderate spinal canal stenosis at L3-4 and L4-5. 4. Primary degenerative changes of the lumbar spine with disc space narrowing at L2-3. 5. Broad-based bulging at multiple levels. Cesario Nick MD Head CT 06/25/16 0000 Signed Impressions: Service Date/Time: Saturday, June 25, 2016 09:07 - CONCLUSION: Unremarkable and stable CT brain compared to the prior study. Cesario Nick MD Abdomen/Pelvis CT 06/23/16 1833 Signed Impressions: Service Date/Time: Thursday, June 23, 2016 19:35 - CONCLUSION: 1. No acute findings in abdomen and pelvic CT. Mild fatty liver. No inguinal hernia identified. Virgilio Curran MD PE at Discharge GENERAL: Alert, NAD. SKIN: Warm and dry. HEAD: Normocephalic. EYES: No scleral icterus. No injection or drainage. NECK: Supple, trachea midline. No JVD or lymphadenopathy. CARDIOVASCULAR: Regular rate and rhythm without murmurs, gallops, or rubs. RESPIRATORY: Breath sounds equal bilaterally. No accessory muscle use. GASTROINTESTINAL: Abdomen soft, non-tender, nondistended. MUSCULOSKELETAL: No cyanosis, or edema. BACK: Nontender without obvious deformity. No CVA tenderness. Pt update on day of discharge Ms. Cotton is doing well. No acute concerns. Her pain is much improved. Family at bedside. Pt wants to go home. Hospital Course Ms. Cotton is a 76 year old female who was admitted due to right lower back pain and right leg weakness. Patient underwent MRI study today. Shows L4 compression fracture as well as moderate spinal stenosis. Interventional radiology does not recommend kyphoplasty at this point. - L4 compression fracture - Moderate spinal stenosis - Continue pain management with acetaminophen, tramadol, [place] as well as Naproxen, Gabapentin. - Bowel regimen includes Dulcolax suppository, Colace, milk of magnesia. - Neurosurgery recommendations much appreciated. - Discussed with Dr. Gotti on 06/28/2016. Surgical decompression of L3/L4 on 07/01/2016. - Dexascan on discharge. - Gabapentin dose decreased. Patient is doing well on this low dose gabapentin. - Hyperlipidemia - continue pravastatin 80 mg daily at bedtime. Patient continued to do well post surgery. She was subsequently discharged on . Pt Condition on Discharge: Good Discharge Disposition: Discharge Home Discharge Time: > 30 minutes Discharge Instructions DIET: Follow Instructions for: As Tolerated, No Restrictions Activities you can perform: Regular-No Restrictions Follow up Referrals: Neurosurgery - 1 Week with Umer Gotti New Orders: Bone Densitometry (DEXA) New Medications: Gabapentin (Gabapentin) 100 Mg Cap 100 MG PO BID Pain Management #60 Ref 0 CAP Misc. Devices (Roller Walker) 1 Mis Mis 1 EA .ROUTE NOW #1 EA Misc. Devices (Round Shower Stool) 1 Mis Mis UNITS #2 Hydrocodone-Acetaminophen (Hydrocodone-Acetaminophen) 5-325 mg Tab 1 TAB PO Q6HR Pain Management #20 TAB Continued Medications: Meclizine (Meclizine) 25 Mg Chew 25 MG CHEW TID PRN DIZZINESS #30 Ref 0 TAB Simvastatin (Simvastatin) 40 Mg Tab 40 MG PO HS Cholesterol Management #30 Ref 0 TAB Davide Guido DO Jul 01, 2016 13:04
--- NOTE | 2016-07-01 13:46 | HHI.FF ---
Face to Face Verification Diagnosis: (1) Compression fracture of L4 lumbar vertebra (2) Spinal stenosis of lumbar region (3) Inability to ambulate due to hip Physical Therapy Order: Evaluate and Treat, Improve ambulation, Strength and gait training Home Health Nursing Order: Medical education Signs/symptoms of disease process Medication education-adverse effect Wound care and dressing changes Nursing assessment with vital signs I have seen patient Roxana Cotton on 07/01/16. My clinical findings support the need for the requested home health care services because: Patient has SOB Deconditioned w/ increased weakness Limited ability to care for self Need for psychosocial assistance High risk of falls Infection w/ risk of complications I certify that my clinical findings support that this patient is homebound because: Post-op weakness Impaired cognitive ability/safety Unsteady gait/balance Unsafe to leave home unassisted Unable to use public transportation Davide Guido DO Jul 01, 2016 1:46 pm
--- NOTE | 2016-07-01 18:59 | MP ---
cc: UMER STAPLETON MD DATE OF SURGERY 06/30/16 PREOPERATIVE DIAGNOSIS Lumbar stenosis. POSTOPERATIVE DIAGNOSIS Lumbar stenosis PROCEDURE Bilateral L3-4 laminotomy for decompression of cauda equina HISTORY The patient is a 76-year-old who presented with intractable pain shooting down her right leg . She was found to have severe stenosis at L3-4 and a ligament tear at that level associated with a subacute compression fracture at L4. She was refractory to medical management prior to being offered surgery. ANESTHESIA General SURGEON Jaden Stapleton MD TECHNIQUE The patient was brought to the operating room, placed supine on her bed. The patient was intubated orally and turned prone onto a Bernard frame. Her lower back was prepped with Betadine then cleansed and prepped with DuraPrep and allowed to dry. Under fluoroscopic guidance, the L3-4 interspace was identified. The incision was placed at L3-4 in the midline. The skin was infiltrated with 1% lidocaine with epinephrine in a 1:1 mixture with 0.5% Marcaine. Ten mL of local was used. The incision was made in the midline with a 15 blade and carried down to the dorsal fascia with the monopolar cautery. A subperiosteal dissection was carried out exposing the caudal aspect of the lamina of L3 bilaterally and the hypertrophic facet joints, especially on the right side at L3-4. The microscope was then brought into the into the field. Under the microscope, the caudal aspect of the lamina of L4 was drilled after removal of the ligament with the [place] rongeur inferiorly at L3-4. The hypertrophic flavum was then from the dura with the #4 [place] and a cottonoid ana. It was then removed in a piecemeal fashion with the 2-mm and 3-mm [place] rongeurs. At the end of this decompression, the dura was decompressed and pulsating very nicely. The laminotomies were extended through the medial aspect of the superior facet joint bilaterally, especially on the right side. A facet spur impinging out the foramen of L3-4 in the right side was removed with the [place] rongeur. The epidural space was then irrigated. Hemostasis was obtained with bipolar cautery, bone wax on bone and FloSeal. The muscle layer was then reapproximated with 2-0 Vicryl sutures. The muscle fascia was then closed with 2-0 Vicryl sutures. The subcutaneous layer and dermis were closed with 2-0 Vicryl sutures. The skin edges were reapproximated with 4-0 Monocryl. The wound was dressed with Telfa and Medipore tape. The patient was then taken back to the recovery room, extubated in a stable condition. ESTIMATED BLOOD LOSS Estimated at 20 mL. Umer Stapleton MD YYG/ /5:58 PM /6:41 PM MTDStevan
[2016-07-01] MEDS ORDERED: GABA100C4 PO (23:35)
[2016-07-10] MEDS ORDERED: GABA100C4 PO (15:50)
[2016-07-10] MEDS ORDERED: HYDR-3516 PO (15:50)
[2016-07-12] MEDS ORDERED: GABA100C4 PO (07:10)
[2016-08-03] MEDS ORDERED: GABA100C4 PO (16:44)
[2016-08-07] MEDS ORDERED: GABA100C4 PO (15:53)
[2016-08-08] MEDS ORDERED: GABA100C4 PO (11:56)
[2016-08-08] MEDS ORDERED: GABA300C5 PO (12:01)
== END 2016-07-01 14:21 | disposition home or self-care (01) ==
LOC: PHED 16:10 → PHEDA 21:23 → PH3B 22:43 → N06A 06-25 20:46
PROVIDERS: ADMIT Hospitalist; ATTEND Hospitalist
DX: M48.06 Spinal stenosis, lumbar region (principal); S32.040A Wedge compression fracture of fourth lumbar vertebra, initial encounter for closed fracture; F03.90 Unspecified dementia, unspecified severity, without behavioral disturbance, psychotic disturbance, mood disturbance, and anxiety; E78.5 Hyperlipidemia, unspecified; E78.00 Pure hypercholesterolemia, unspecified; F41.9 Anxiety disorder, unspecified; Z01.810 Encounter for preprocedural cardiovascular examination
CPT/HCPCS: 00630; 63047; 70450; 72020; 72131; 72148; 74177; 76000; 76937; 80048; 80053; 81001; 82306; 82948; 84439; 84443; 85025; 85610; 85652; 86140; 93005; 96374; 96375; 97110; 97116; 97162; 99284; G0378; G8987; G8988; J0131; J1130; J1644; J2250; J2270; J2405; J2710; J3010; L0484; Q9967